=== PATIENT | male | born 1970 | race Caucasian/White ===

== ENCOUNTER → 2022-07-10 14:46 | Outpatient (BNVA) | payer BC, SELFPAY | PROVIDERS: PCP Internal Medicine; Visit Provider Nurse Practitioner Family | DX: Z13.89 Encounter for screening for other disorder (principal) ==

== ENCOUNTER → 2022-09-28 09:48 | Outpatient (BNVA) | payer BC, SELFPAY | PROVIDERS: PCP Internal Medicine; Visit Provider Urology | DX: Z13.89 Encounter for screening for other disorder (principal) ==

== ENCOUNTER 2023-03-28 10:32 | Outpatient (AMB) | payer BC, SELFPAY ==
--- NOTE | 2023-03-28 10:34 | A.OFFVIS_ITS ---
Intake Intake Visit Reasons: 6M CBC/PSA/Testo(SET) Intake Note: Patient is Present for Telephone Follow Up Urology Med: Tadalafil, Testosterone Antibiotic Allergy: None Blood Thinner: none Pharamcy: [employer] Allergies No Known Allergies Allergy (Verified 03/28/23 10:41) Medication List - Last Reconciled 03/28/23 by Tanner Cantu MD bempedoic acid-ezetimibe 180-10 mg (Nexlizet) 1 tab PO DAILY blood-glucose sensor ([employer] G6 Sensor device) As directed insulin aspart U-100 (Novolog FlexPen U-100 Insulin aspart) subcut insulin glargine (Basaglar KwikPen U-100 Insulin) 18 units subcut DAILY lisinopril 2.5 mg PO DAILY pen needle, diabetic (BD Acacia 2nd Gen Pen Needle) As directed rosuvastatin 40 mg PO DAILY tadalafil 10 - 20 mg PO DAILY PRN testosterone cypionate 80 mg (0.4 mL) IM QWEEK 28 days HPI HPI Comments History of Present Illness Details Ed is a pleasant male. He is a patient of Dr. Thapa. 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 May do in steps Prescription provided Six month follow-up Hypogonadism Had been placed on 100 mg every 6 days Initiated hormone therapy replacement in 2018 in response to decreased libido 02/24 T 926 F 221 Current labs show a mid range total T and free, borderline hematocrit Encouraged to moved to 7 day cycle with Sunday injection day and Sunday or Sunday testing Total daily insulin usage protein 12-15 units [facility] Medical History Type 1 diabetes mellitus Surgical History History of shoulder surgery History of umbilical hernia repair Review of Systems Const All systems reviewed & are unremarkable except as noted in HPI and below Reports no additional complaints Resp Reports no additional complaints GI Reports no additional complaints Reports as per HPI Musc Reports no additional complaints Physical Exam Telemedicine evaluation Appropriate responses Regular breathing rate and rhythm HEENT Head: Yes normal to inspection Ears: hearing grossly normal bilaterally Eyes General: appearance normal, both eyes and all related structures Neck Neck: Yes normal visual inspection Chest Chest palpation & inspection: normal inspection of the chest Resp Effort & Inspection: normal respiratory effort and able to speak in complete sentences Assessment & Plan Assessment & Plan (1) Diabetic erectile dysfunction associated with type 1 diabetes mellitus: Code(s): E10.69 - Type 1 diabetes mellitus with other specified complication; N52.1 - Erectile dysfunction due to diseases classified elsewhere (2) Hypogonadism in male: Code(s): E29.1 - Testicular hypofunction Plan Six month follow-up labs Orders: Orders Testosterone, Total 6 Months E29.1 - Testicular hypofunction Complete Blood Count no Diff 6 Months E29.1 - Testicular hypofunction Prostate Specific Antigen 6 Months E29.1 - Testicular hypofunction Medications: Changed From testosterone cypionate inject IM 0.5ml's every 7 days 100 mg (0.5 mL) IM QWEEK 28 days 2 mL 5RF To testosterone cypionate inject IM 0.4ml's every 7 days 80 mg (0.4 mL) IM QWEEK 28 days 2 mL 5RF Patient Instructions: Imaging studies, laboratory and physical exam results were discussed and reviewed in detail. No major barriers to patient understanding were identified. An opportunity to ask questions regarding the treatment plan was provided. All questions were answered. The patient expressed understanding and agreement with the above treatment plan. The patient is aware they should contact our office by phone for worsening of their current condition or the appearance of new urologic symptoms. Compliance is encouraged with any medications and followup testing that is ordered. It is a privilege to participate in the urologic care of your patient. If you have any questions or concerns regarding treatment for the above conditions, or other urologic issues, please do not hesitate to contact me. The office telephone contact is [phone]. This note is constructed using voice recognition software. While every effort has been made to ensure accuracy vp care management errors may have been included. Yours sincerely, Dr Tanner Cantu MD, [facility] - Urology Providers of Expert, Compassionate Care for the Genitourinary System Telehealth Telehealth Location of provider rendering services: practice address Location of patient: address on file Patient Identification confirmed using: Name, : Yes Telehealth method: video Patient verbally consented to treatment: Yes Patient verbally consented to billing insurance company: Yes Patient informed of any privacy concerns related to visit: Yes Coding Level of Care Code Tele Est Pt Level 4 (94352) Diagnoses Diabetic erectile dysfunction associated with type 1 diabetes mellitus E10.69; N52.1 Hypogonadism in male E29.1
== END 2023-03-28 15:48 | disposition home or self-care (01) ==
LOC: HO.HUSH 10:33
PROVIDERS: PCP Internal Medicine; Visit Provider Urology
DX: E10.69 Type 1 diabetes mellitus with other specified complication (principal); N52.1 Erectile dysfunction due to diseases classified elsewhere; E29.1 Testicular hypofunction
CPT/HCPCS: 99214

== ENCOUNTER → 2023-03-28 10:32 | Outpatient (BNVA) | payer BC, SELFPAY | PROVIDERS: PCP Internal Medicine; Visit Provider Urology ==

== ENCOUNTER 2023-05-21 10:47 | Outpatient (REF) | payer BC, SELFPAY ==
--- NOTE | ~2023-05-21 | XR_ITS ---
EXAMINATION: XR KNEE, RIGHT CLINICAL INFORMATION: Pain in the right knee COMPARISON: None available. TECHNIQUE: 3 views of the right knee. FINDINGS: No fracture or joint effusion. Alignment is anatomic. Joint spaces are maintained. No abnormal soft tissue calcification. XR/XR knee RT 3V IMPRESSION: Normal right knee.
== END 2023-05-21 10:48 | disposition home or self-care (01) ==
LOC: HO.HOSX 10:47
PROVIDERS: Visit Provider Orthopaedic Surgery
DX: M25.561 Pain in right knee (principal)
CPT/HCPCS: 73562

== ENCOUNTER 2023-05-21 13:48 | Outpatient (AMB) | payer BC, SELFPAY ==
--- NOTE | 2023-05-21 14:04 | A.OFFVIS_ITS ---
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 Previous patient of Dr. Naranjo. Patient describes his knee pain as achy in nature. Most of the discomfort is along the anterior a nd lateral aspects of his knee. He denies any locking or giving way. He has been resting his knee which has given him fairly good relief. He does not take any medicines for his discomfort. He continues to mountain bike for exercise. Allergies No Known Allergies Allergy (Verified 05/21/23 14:05) Medication List - Last Reconciled 05/21/23 by Luca Naranjo MD bempedoic acid-ezetimibe 180-10 mg (Nexlizet) 1 tab PO DAILY blood-glucose sensor ([employer] G6 Sensor device) As directed insulin aspart U-100 (Novolog FlexPen U-100 Insulin aspart) subcut insulin glargine (Basaglar KwikPen U-100 Insulin) 18 units subcut DAILY lisinopril 2.5 mg PO DAILY pen needle, diabetic (BD Acacia 2nd Gen Pen Needle) As directed rosuvastatin 40 mg PO DAILY tadalafil 10 - 20 mg PO DAILY PRN testosterone cypionate 80 mg (0.4 mL) IM QWEEK 28 days [facility] Medical History Type 1 diabetes mellitus Surgical History History of shoulder surgery History of umbilical hernia repair Social History (Updated 05/21/23 @ 14:06 by Josseline Burnham) Alcohol intake: never Patient Tobacco Use Status: Never used Tobacco Current occupational status: employed Physical Exam Const Other: Well-nourished well-developed very friendly male awake alert and oriented x3 in no acute distress Extrem Other: Bilateral lower extremity examination shows good capillary refill, no skin lesions noted, normal sensation light touch Right knee examination shows a minimal effusion, minimal crepitus with range of motion, tenderness along his lateral patella as well as tenderness over his patellar tendon, no overlying skin lesions Results Reviewed Results Reviewed: X-rays of the patient's right knee show minimal joint space narrowing, no acute bony abnormalities Assessment & Plan Assessment & Plan (1) Right knee pain: Code(s): M25.561 - Pain in right knee Plan Mr. 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 I had a lengthy discussion with the patient regarding treatment options. Activity modifications and stretching exercises were discussed at length with the patient. We will hold off on an injection for now. He will follow up with me on an as-needed basis should his symptoms not plateau at an unacceptable level over the next few months. Feel free to call me at any time should questions regarding his orthopedic management arise. I spent 20 minutes in reviewing the patient's records and imaging studies, seeing the patient and documenting in the medical record. Orders: Orders XR knee RT 3V Today M25.561 - Pain in right knee Coding Level of Care Code New Pt Level 2 (25156) Diagnoses Right knee pain M25.561
== END 2023-05-21 14:28 | disposition home or self-care (01) ==
PROVIDERS: PCP Internal Medicine; Visit Provider Orthopaedic Surgery
DX: M25.561 Pain in right knee (principal)
CPT/HCPCS: 99202

== ENCOUNTER 2023-10-05 13:21 | Outpatient (AMB) | payer BC, SELFPAY ==
--- NOTE | 2023-10-05 13:42 | A.OFFVIS_ITS ---
Intake Visit Reasons: 6M PSA/TESTO/CBC(set) Intake Note: Patient is Present for Follow Up Urology Medication: Tadalafil, Testosterone Antibiotic Allergies:None Blood Thinners: None Allergies No Known Allergies Allergy (Verified 05/21/23 14:05) HPI Comments Details: Ed is a pleasant male. He is a patient of Dr. Thapa. 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 Does feel some degree of fatigue on day before injection Hematocrit is starting to trend higher Discussed doing 2 injections per week Recommend starting at 40 mg 2 times per week - will decreased to 30 mg 2 times a week slowly Lab numbers running a little on the high side Hypogonadism Had been placed on 100 mg every 6 days Initiated hormone therapy replacement in 2019 in response to decreased libido 02/24 T 926 F 221, 09/25 966 H 51.7 Current labs show a mid range total T and free, borderline hematocrit Encouraged to moved to 7 day cycle with Sunday injection day and Sunday or Sunday testing Total daily insulin usage 12-15 units PFS Medical History Type 1 diabetes mellitus Surgical History History of shoulder surgery History of umbilical hernia repair Social History Alcohol intake: never Patient Tobacco Use Status: Never used Tobacco Current occupational status: employed Review of Systems Const Denies chills and Denies fever(s) Card Reports no additional complaints and Denies syncope Resp Denies cough GI Denies abdominal pain and Denies heartburn Reports as per HPI and Denies change in libido Neuro Denies syncope Psych Denies change in libido Endo Denies change in libido Physical Exam Const General: cooperative, healthy appearing, comfortable and no acute distress Orientation/consciousness: patient oriented x3 HEENT Face and sinus: Yes normal facial exam Mouth: moist mucous membranes Neck Neck: Yes normal visual inspection, Yes full ROM and Yes trachea midline Chest Chest palpation & inspection: normal inspection of the chest Resp Effort & Inspection: normal respiratory effort, able to speak in complete sentences and no respiratory distress GI Inspection: Yes normal to inspection Back/Spine/Pelvis Cervical Spine: normal cervical lordosis Thoracic/Lumbar Spine: thoracic and lumbar spine normal to inspection Skin General skin exam: no rashes or lesions noted Neuro General: patient oriented x3, gait normal, tone normal and moves all extremities Extrem General: Yes normal to inspection and Yes capillary refill normal Assessment & Plan Assessment & Plan (1) Diabetic erectile dysfunction associated with type 1 diabetes mellitus: Code(s): E10.69 - Type 1 diabetes mellitus with other specified complication; N52.1 - Erectile dysfunction due to diseases classified elsewhere Category: Medical (2) Hypogonadism in male: Code(s): E29.1 - Testicular hypofunction Category: Medical Plan Adjust testosterone dosing New prescription provided Six-month follow-up lab work Orders: Orders Testosterone, Total 6 Months E29.1 - Testicular hypofunction Complete Blood Count no Diff 6 Months E29.1 - Testicular hypofunction Medications: New needle (disp) 18 G (BD Regular Bevel [place]) As directed - draw up testosterone 100 ea 0RF E29.1 - Testicular hypofunction syringe (disposable) (Monoject TB Luer Yolis) As directed - use 18 needle to draw up testosterone and 22 to inject 60 ea 0RF E29.1 - Testicular hypofunction safety needles (Easy Touch FlipLock Needle) As directed 60 ea 0RF E29.1 - Testicular hypofunction Patient Instructions: Imaging studies, laboratory and physical exam results were discussed and reviewed in detail. No major barriers to patient understanding were identified. An opportunity to ask questions regarding the treatment plan was provided. All questions were answered. The patient expressed understanding and agreement with the above treatment plan. The patient is aware they should contact our office by phone for worsening of their current condition or the appearance of new urologic symptoms. Compliance is encouraged with any medications and followup testing that is ordered. It is a privilege to participate in the urologic care of your patient. If you have any questions or concerns regarding treatment for the above conditions, or other urologic issues, please do not hesitate to contact me. The office telephone contact is [phone]. This note is constructed using voice recognition software. While every effort has been made to ensure accuracy metal tile setter errors may have been included. Yours sincerely, Dr Tanner Cantu MD, [facility] - Urology Providers of Expert, Compassionate Care for the Genitourinary System Coding Level of Care Code Est Pt Level 4 (41991) Complex EM visit Add On G2211 Diagnoses Diabetic erectile dysfunction associated with type 1 diabetes mellitus E10.69; N52.1 Hypogonadism in male E29.1
== END 2023-10-05 14:14 | disposition home or self-care (01) ==
PROVIDERS: PCP Internal Medicine; Visit Provider Urology
DX: E10.69 Type 1 diabetes mellitus with other specified complication (principal); N52.1 Erectile dysfunction due to diseases classified elsewhere; E29.1 Testicular hypofunction
CPT/HCPCS: 99214; G2211

== ENCOUNTER → 2023-10-05 13:21 | Outpatient (BNVA) | payer BC, SELFPAY | PROVIDERS: PCP Internal Medicine; Visit Provider Urology ==

== ENCOUNTER 2024-04-04 09:09 | Outpatient (AMB) | payer BC, SELFPAY ==
--- NOTE | 2024-04-04 09:11 | A.OFFVIS_ITS ---
Intake Visit Reasons: 6M CBC/Testo(set) Intake Note: Patient is Present for Telephone Follow Up CBC/TESTO Results Urology Med: Testosterone, Tadalafil Antibiotic Allergy: None Blood Thinner: None Recent labs: 03/12/24 CBC: Total Testosterone: 792 Interventional Radiology Rn Required: No Accompanied by: Self / Same As Patient Allergies No Known Allergies Allergy (Verified 04/04/24 09:13) HPI Comments Details: Ed is a pleasant male. He is a patient of Dr. Thapa. 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 Feels less of a roller coaster. Hematocrit has reduced fractionally but is still in good range Hypogonadism Had been placed on 100 mg every 6 days Initiated hormone therapy replacement in 2018 in response to decreased libido 02/24 T 926 F 221, 09/25 966 H 51.7, 03/27 T 790 H 52 Current labs show a mid range total T and free, borderline hematocrit Encouraged to moved to 7 day cycle with Sunday injection day and Sunday or Sunday testing Total daily insulin usage 12-15 units PFS Medical History Type 1 diabetes mellitus Surgical History History of shoulder surgery History of umbilical hernia repair Social History Alcohol intake: never Patient Tobacco Use Status: Never used Tobacco Current occupational status: employed Review of Systems Const All systems reviewed & are unremarkable except as noted in HPI and below Reports no additional complaints Resp Reports no additional complaints GI Reports no additional complaints Reports as per HPI Musc Reports no additional complaints Physical Exam Telemedicine evaluation Appropriate responses Regular breathing rate and rhythm HEENT Head: Yes normal to inspection Ears: hearing grossly normal bilaterally Eyes General: appearance normal, both eyes and all related structures Neck Neck: Yes normal visual inspection Chest Chest palpation & inspection: normal inspection of the chest Resp Effort & Inspection: normal respiratory effort and able to speak in complete sentences Telehealth Telehealth Location of provider rendering services: practice address Location of patient: address on file Patient Identification confirmed using: Name, : Yes Telehealth method: video Patient verbally consented to treatment: Yes Patient verbally consented to billing insurance company: Yes Patient informed of any privacy concerns related to visit: Yes Assessment & Plan Assessment & Plan (1) Hypogonadism in male: Code(s): E29.1 - Testicular hypofunction Category: Medical Plan Continue current dosing regimen Orders: Orders Prostate Specific Antigen 6 Months E29.1 - Testicular hypofunction Testosterone, Total 6 Months E29.1 - Testicular hypofunction Complete Blood Count no Diff 6 Months E29.1 - Testicular hypofunction Medications: Refilled testosterone cypionate Split dose 0.2 mL 2 times a week Sunday evening and morning. 80 mg (0.4 mL) subcut QWEEK 28 days 4 mL 5RF E29.1 - Testicular hypofunction Patient Instructions: Imaging studies, laboratory and physical exam results were discussed and reviewed in detail. No major barriers to patient understanding were identified. An opportunity to ask questions regarding the treatment plan was provided. All questions were answered. The patient expressed understanding and agreement with the above treatment plan. The patient is aware they should contact our office by phone for worsening of their current condition or the appearance of new urologic symptoms. Compliance is encouraged with any medications and followup testing that is ordered. It is a privilege to participate in the urologic care of your patient. If you have any questions or concerns regarding treatment for the above conditions, or other urologic issues, please do not hesitate to contact me. The office telephone contact is [phone]. This note is constructed using voice recognition software. While every effort has been made to ensure accuracy farmworker livestock errors may have been included. Yours sincerely, Dr Tanner Cantu MD, [facility] - Urology Providers of Expert, Compassionate Care for the Genitourinary System Coding Level of Care Code Tele Est Pt Level 3 (62147) Diagnoses Hypogonadism in male E29.1
== END 2024-04-04 10:14 | disposition home or self-care (01) ==
LOC: HO.HUSH 09:09
PROVIDERS: PCP Internal Medicine; Visit Provider Urology
DX: E29.1 Testicular hypofunction (principal)
CPT/HCPCS: 99213

== ENCOUNTER → 2024-04-04 09:09 | Outpatient (BNVA) | payer BC, SELFPAY | PROVIDERS: PCP Internal Medicine; Visit Provider Urology ==

== ENCOUNTER 2024-10-07 08:46 | Outpatient (AMB) | payer BC, SELFPAY ==
--- NOTE | 2024-10-07 08:46 | MHC.OFFVIS ---
Intake Visit Reasons: 6m/ labs Intake Note: Patient is present for 6M/LABS Urology Medication:TESTOSTERONE,TADALAFIL Antibiotic Allergy:NONE Blood Thinner:NONE Social Studies Teacher Required: No Allergies No Known Allergies Allergy (Verified 10/07/24 08:46) HPI Comments Details: Ed is a pleasant male. He is a patient of Dr. Thapa. 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 Feels less of a roller coaster. 50mg per injection. Hematocrit has reduced fractionally but is still in good range T high on this lab - was done afternoon of injection Hypogonadism Had been placed on 100 mg every 6 days Initiated hormone therapy replacement in 2018 in response to decreased libido 02/24 T 926 F 221, 09/25 966 H 51.7, 03/27 T 790 H 52, 09/05/24 1113 52 0.6 (Sun) Current labs show a mid range total T and free, borderline hematocrit Encouraged to moved to 7 day cycle with Sunday injection day and Sunday or Sunday testing Total daily insulin usage 1 unit per grams of carbs 15-20 gm [facility] Medical History Type 1 diabetes mellitus Surgical History History of shoulder surgery History of umbilical hernia repair Social History Alcohol intake: never Patient Tobacco Use Status: Never used Tobacco Current occupational status: employed Review of Systems Const All systems reviewed & are unremarkable except as noted in HPI and below Reports no additional complaints Resp Reports no additional complaints GI Reports no additional complaints Reports as per HPI Musc Reports no additional complaints Physical Exam Telemedicine evaluation Appropriate responses Regular breathing rate and rhythm HEENT Head: Yes normal to inspection Ears: hearing grossly normal bilaterally Eyes General: appearance normal, both eyes and all related structures Neck Neck: Yes normal visual inspection Chest Chest palpation & inspection: normal inspection of the chest Resp Effort & Inspection: normal respiratory effort and able to speak in complete sentences Telehealth Telehealth Location of provider rendering services: practice address Location of patient: address on file Patient Identification confirmed using: Name, : Yes Telehealth method: voice only Patient verbally consented to treatment: Yes Patient verbally consented to billing insurance company: Yes Patient informed of any privacy concerns related to visit: Yes Assessment & Plan Assessment & Plan (1) Hypogonadism in male: Code(s): E29.1 - Testicular hypofunction Category: Medical (2) Diabetic erectile dysfunction associated with type 1 diabetes mellitus: Code(s): E10.69 - Type 1 diabetes mellitus with other specified complication; N52.1 - Erectile dysfunction due to diseases classified elsewhere Category: Medical (3) BPH (benign prostatic hyperplasia): Code(s): N40.0 - Benign prostatic hyperplasia without lower urinary tract symptoms Category: Medical Plan Six-month follow-up lab work office Orders: Orders Testosterone, Total 6 Months E29.1 - Testicular hypofunction Prostate Specific Antigen 6 Months E29.1 - Testicular hypofunction Complete Blood Count no Diff 6 Months E29.1 - Testicular hypofunction Medications: Changed From tadalafil 10 - 20 mg PO DAILY PRN To tadalafil 5 mg PO DAILY 90 days 90 tabs 1RF Refilled testosterone cypionate Split dose 0.2 mL 2 times a week Sunday evening and morning. 80 mg (0.4 mL) subcut QWEEK 28 days 4 mL 5RF E29.1 - Testicular hypofunction Patient Instructions: This note is constructed using voice recognition software. While every effort has been made to ensure accuracy door frame builder errors may have been included. Imaging studies, laboratory and physical exam results were discussed and reviewed in detail. No major barriers to patient understanding were identified. An opportunity to ask questions regarding the treatment plan was provided. All questions were answered. The patient expressed understanding and agreement with the above treatment plan. The patient is aware they should contact our office by phone for worsening of their current condition or the appearance of new urologic symptoms. Compliance is encouraged with any medications and followup testing that is ordered. It is a privilege to participate in the urologic care of your patient. If you have any questions or concerns regarding treatment for the above conditions, or other urologic issues, please do not hesitate to contact me. The office telephone contact is [phone]. Sincerely, Dr Tanner Cantu MD, [facility] - Urology Compassionate Specialist Care for the Genitourinary System Coding Level of Care Code Est Pt Level 4 (43938) Complex EM visit Add On G2211 Diagnoses Hypogonadism in male E29.1 Diabetic erectile dysfunction associated with type 1 diabetes mellitus E10.69; N52.1 BPH (benign prostatic hyperplasia) N40.0
--- OUTSIDE RECORDS SUMMARY | 2024-10-07 09:16 | XMS_ITS | Clinical Summary ---
Author Organization [facility] Address [address] [place] [address] Care Team Providers Care Export Clerk Name Role Phone Seferino Thapa MD Primary Care Provider [phone] Matt Whitmore MD Unavailable Tanner Cantu MD Unavailable [phone] Allergies No known active allergies Medications aspirin enteric coated (ECOTRIN LOW STRENGTH) 81 MG EC tablet Take 1 tablet (81 mg total) by mouth daily. Active rosuvastatin (CRESTOR) 40 MG tablet Take 1 tablet (40 mg total) by mouth daily. 12/27/19 21 Active NovoLOG FLEXPEN, insulin aspart, 100 UNIT/ML subcutaneous injection INJECT 4 6 UNITS, SUBCUTANEOUSLY 3 TIMES A DAY BEFORE MEALS DIRECTED. ROTATE INJECTION SITES. 11/13/19 21 Active testosterone cypionate (DEPO-TESTOSTERONE CYPIONATE) 200 mg/mL injection Inject 0.5 mL (100 mg total) into the shoulder, thigh, or buttocks. Every 5 days 12/17/19 21 Active Magnesium 400 MG Cap Take 1 capsule by mouth daily. Active tadalafil (CIALIS) 10 MG tablet Take 1-2 tablets (10-20 mg total) by mouth as needed. 06/01/20 20 Active coenzyme Q10 (CO Q 10) 100 MG capsule Take 1 capsule (100 mg total) by mouth daily. Active Multiple Vitamin tablet Take 1 tablet by mouth daily. Active omega-3 fatty acids (FISH OIL) 1000 MG Cap capsule Take 1 capsule (1,000 mg total) by mouth daily. Active Insulin Pen Needle (BD Pen Needle Acacia U/F) 32G X 4 MM Misc by Does not apply route. Active Fluocinolone Acetonide 0.01 % Oil Administer 2-4 drop(s) of each component into both ears 2 (two) times a day. Active glucose blood (FREESTYLE LITE) test strip 1 test strip by Other (specify) route as needed. Use as instructed Active insulin lispro (HumaLOG) 100 units/mL injection Inject 0.05 mL (5 Units total) under the skin 3 (three) times a day with meals. Active SYRINGE-NEEDLE, DISP, 3 ML 23G X 1 3 ML Misc by Does not apply route. Active SYRINGE-NEEDLE, DISP, 3 ML 25G X 5/8 3 ML Misc by Does not apply route. Active lisinopril (PRINIVIL,ZeSTRIL) 2.5 MG tablet Take 1 tablet (2.5 mg total) by mouth daily. 09/26/19 23 Active insulin glargine (Lantus SoloStar) 100 units/mL prefilled pen injection Inject 17 Units under the skin. 07/17/19 24 Active Continuous Glucose Sensor (Dexcom G7 Sensor) Misc CHANGE EVERY 10 DAYS 09/10/19 24 Active Nexlizet 180-10 MG tabletIndications: Mixed hyperlipidemia TAKE ONE TABLET BY MOUTH EVERY DAY 90 tablet 3 03/17/20 24 Active Active Problems Problem Noted Date Diagnosed Date Mixed hyperlipidemia 12/29/2020 Elevated coronary artery calcium score Libido, decreased 08/27/2019 Lateral epicondylitis, right elbow 06/28/2017 Encounters Date Type Department Care Team Description 09/05/2024 Telephone [facility] [place] [address] [address] Matt Whitmore MD from Last 3 Months Family History Medical History Relation Name Comments No Known Problems Father No Known Problems Mother Relation Name Status Comments Father Mother Social History Tobacco Use Types Packs/Day Years Used Date Smoking Tobacco: Former Smokeless Tobacco: Never Tobacco Cessation:Counseling Given: Yes Alcohol Use Standard Drinks/Week Comments Yes 0 (1 standard drink = 0.6 oz pur e alcohol) Sex and Gender Information Value Date Recorded Sex Assigned at Male 10/03/2022 1:10 PM EDT Legal Sex Male 4:57 PM EDT Gender Identity Male 10/03/2022 1:10 PM EDT Sexual Orientation Heterosexual (straight) 10/03 1:10 PM EDT Last Filed Vital Signs Vital Sign Reading Time Taken Comments Blood Pressure 128/86 10/05/2023 9:50 AM EDT Pulse 58 10/05/2023 9:50 AM EDT Temperature - - Respiratory Rate - - Oxygen Saturation 98% 10/05/2023 9:50 AM EDT Inhaled Oxygen Concentration - - Weight 78.4 kg (172 lb 12.8 oz) 10/05/2023 9:50 AM EDT Height 177 cm (5' 9.69 ) 10/05/2023 9:50 AM EDT Body Mass Index 25.02 10/05/2023 9:50 AM EDT Plan of Treatment Upcoming Encounters Date Type Department Care Team (Late st Contact Info) Description 10/09/2024 10:00 AM EDT Office Visit [facility] [place] [address] [phone] Matt Whitmore MD [address] [place] [id number] Health Maintenance Due Date Last Done Comments Hepatitis C Virus Screening 1970 HIV Screening 1983 DTaP/Tdap/Td Vaccines (1 - Tdap) 1989 Hepatitis B Vaccines (1 of 3 - 19+ 3-dose series) 05/05 Colonoscopy 2015 Pneumococcal Vaccines 50+ (1 of 1 - PCV) 2020 Zoster (Shingles) Vaccine (1 of 2) 2020 Influenza Vaccine 01/03/2024 COVID-19 Vaccine (1 - 2023- season) 2024 Procedures Procedure Name Priority Date/Time Associated Diagnosis Comments CARDIO IQ?? VITAMIN D, 25-HYDROXY Routine 09/05/2024 6:23 AM EDT Elevated coronary artery calcium score Mixed hyperlipidemia Blood glucose abnormal Vitamin D deficiency OMEGACHECK ? ? Routine 09/05/2024 6:23 AM EDT Elevated coronary artery calcium score Mixed hyperlipidemia Blood glucose abnormal CARDIO IQ?? INSULIN RESISTANCE PANEL WITH SCORE Routine 09/05/2024 6:23 AM EDT Elevated coronary artery calcium score Mixed hyperlipidemia Blood glucose abnormal CARDIO IQ?? HEMOGLOBIN A1C Routine 09/05/2024 6:23 AM EDT Elevated coronary artery calcium score Mixed hyperlipidemia Blood glucose abnormal CARDIO (IQ) ?? ADVANCED LIPID PANEL AND INFLAMMATION PANEL Routine 09/05/2024 6:23 AM EDT Elevated coronary artery calcium score Mixed hyperlipidemia Blood glucose abnormal from Last 3 Months Results * (ABNORMAL) Cardio IQ?? Insulin Resistance Panel with Score (09/05/2024 6:23 AM EDT) [facility] Insulin, Intact <3 < OR = 16 uIU/mL [facility], Comment: Insulin concentration can be converted to pmol/L by applying the conversion factor: 1 uIU/mL = 5.97 pmol/L For additional information, please refer to http://SRE [place] - 2.VSE EVAKUATORY ROSSII/faq/VMC090 (This link is being provided for informational/educational purposes only.) This test was developed and its analytical performance characteristics have been determined by [facility]. It has not been cleared or approved by the FDA. This assay has been validated pursuant to the CLIA regulations and is used for clinical purposes. C-Peptide <0.11(L) 0.68 - 2.16 ng/mL [facility], Insulin Resistance Score NOT CALC(A) < OR = 66 [facility], Comment: Unable to calculate the Insulin Resistance Score, as one or more analytes were outside of the reportable range. Insulin Sensitive < 33; Impaired Insulin Sensitivity 33-66; Insulin Resistant >66 A score below 33 is optimal. The insulin resistance score correlates with steady state glucose levels achieved during an insulin suppression test, a standard research test for insulin resistance. The score is based on insulin and C-peptide results (Lisbet F, Dawn D, Sushant SANDOVAL, et al. Insulin resistance probability scores for apparently healthy individuals. J Endocr Soc. 2018;2(9):1043-8766). For additional information, please refer to http://SRE [place] - 2.VSE EVAKUATORY ROSSII/faq/UNK951 (This link is being provided for informational/educational purposes only.) This test was developed and its analytical performance characteristics have been determined by [facility]. It has not been cleared or approved by the FDA. This assay has been validated pursuant to the CLIA regulations and is used for clinical purposes. 09/05/2024 6:23 AM EDT 09/05/2024 6:24 AM EDT Narrative [facility] - 09/25/2024 10:36 PM EDT FASTING:YES FASTING: YES us Matt Whitmore MD LAB BLOOD ORDERABLES Final Resul t EMILIANO [facility], [address] [place] [address] * (ABNORMAL) Omegacheck (Goodell-3, Goodell-6) (09/05/2024 6:23 AM EDT) [facility] EPA+DPA+DHA 7.1 >5.4 % by wt [facility]. Comment: This test was developed and its analytical performance characteristics have been determined by [facility]. It has not been cleared or approved by the U.S. Food and Drug Administration. This assay has been validated pursuant to the CLIA regulations and is used for clinical purposes. Increasing blood levels of long-chain n-3 fatty acids are associated with a lower risk of sudden cardiac (1). Based on the top (75th percentile) and bottom (25th percentile) quartiles of the CHL reference population, the following relative risk categories were established for OmegaCheck: ??A cut-off of >=5.5% by wt defines a population at optimal relative risk, 3.8-5.4% by wt defines a population at moderate relative risk, and <=3.7% by wt defines a population at high relative risk of sudden cardiac . The totality of the scientific evidence demonstrates that when consumption of fish oils is limited to 3 g/day or less of EPA and DHA, there is no significant risk for increased bleeding time beyond the normal range. A daily dosage of 1 gram of EPA and DHA lowers the circulating triglycerides by about 7-10% within 2 to 3 weeks. (Reference: 1-Jd et al. [facility]. 2002; 346: 8706-9043). EPA/Arachidonic Acid Ratio 11.4 3.7 - 40.7 [employer]. Goodell 6/Goodell 3 Ratio 5.1 3.7 - 14.4 [employer]. Goodell-3 Total 7.1 % by wt [employer]. EPA 1.4 0.2 - 2.3 % by wt [employer] [facility]. DPA 1.6 0.8 - 1.8 % by wt [facility]. DHA 4.1 1.4 - 5.1 % by wt [facility]. Goodell-6 Total 36.3 % by wt [employer]. Comment: Context Relevant measures a number of omega-6 fatty acids with AA and LA being the two most abundant forms reported. Arachidonic Acid 15.6 8.6 - 15.6 % by wt [facility]. Linoleic Acid 17.2(L) 18.6 - 29.5 % by wt [facility].-[employer]. 09/05/2024 6:23 AM EDT 09/05/2024 6:24 AM EDT Narrative EMILIANO - 09/25/2024 10:36 PM EDT FASTING:YES FASTING: YES us Matt Whitmore MD LAB BLOOD ORDERABLES Final Resul t EMILIANO [facility] Best.-CAD Best. [address] [facility], [address] [place] [address] * (ABNORMAL) Cardio IQ?? Advanced Lipid Panel and Inflammation Panel (09/05/2024 6:23 AM EDT) Cholesterol, Total 103 <200 mg/dL [facility] [employer] Cholesterol, HDL 50 >39 mg/dL [facility] [employer] Triglycerides 59 <150 mg/dL [facility] [employer] LDL Cholesterol 39 <100 mg/dL (calc) [facility] i[employer] Inc[employer]Lab Inc. Comment: Desirable range <100 mg/dL for primary prevention; <70 mg/dL for patients with CHD or diabetic patients with >= 2 CHD risk factors. LDL-C is now calculated using the Lyndon-Christianson calculation, which is a validated novel method providing better accuracy than the Friedewald equation in the estimation of LDL-C. Lyndon SS et al. BUFFY. 2013;310(19): 8258-3579 (http://education.Bugcrowd.[facility] Innovatoins/faq/TIM165) LDL-C is now calculated using the Lyndon-Christianson calculation, which is a validated novel method providing better accuracy than the Friedewald equation in the estimation of LDL-C. Lyndon SS et al. BUFFY. 2013;310(19): 4811-1013 (http://education.Bugcrowd.[facility] [facility] [employer]/faq/PCT185) Cholesterol/HDL Ratio 2.1 <5.0 calc [facility] [employer] Non HDL Chol. (LDL+VLDL) 53 <130 mg/dL (calc) [facility] [employer] Comment: For patients with diabetes plus 1 major ASCVD risk factor, treating to a non-HDL-C goal of <100 mg/dL (LDL-C of <70 mg/dL) is considered a therapeutic option. For patients with diabetes plus 1 major ASCVD risk factor, treating to a non-HDL-C goal of <100 mg/dL (LDL-C of <70 mg/dL) is considered a therapeutic option. LDL Particle Number 941 <1,138 nmol/L [facility] [employer]i, Inc[employer]Lab Inc. Comment: Relative Risk: Optimal <1138; Moderate 2827-9706; High >1409. Male and Female Reference Range: 1016 to 2185 nmol/L. LDL Small 191(H) <142 nmol/L [facility]. Comment: Relative Risk: Optimal <142; Moderate 142-219; High >219. Male Reference Range: 123 to 441 nmol/L; Female Reference Range: 115 to 386 nmol/L. LDL Medium 161 <215 nmol/L [facility]. Comment: Relative Risk: Optimal <215; Moderate 215-301; High >301. Male Reference Range: 167 to 485 nmol/L; Female Reference Range: 121 to 397 nmol/L. HDL Large 4,197(L) >6,729 nmol/L [facility]. Comment: Relative Risk: Optimal >6729; Moderate 5079-0845; High <5353. Male Reference Range: 4334 to [address] nmol/L; Female Reference Range: 5038 to [address] nmol/L. LDL Pattern B(A) A Pattern [facility]. Comment: Relative Risk: Optimal Pattern A; High Pattern B. Reference Range: Pattern A. LDL Peak Size 213.3(L) >222.9 Angstrom [facility]. Comment: This test was developed and its analytical performance characteristics have been determined by [facility]. It has not been cleared or approved by the U.S. Food and Drug Administration. This assay has been validated pursuant to the CLIA regulations and is used for clinical purposes. Relative Risk: Optimal >222.9; Moderate 222.9-217.4; High <217.4. Male and Female Reference Range: 216 to 234.3 Angstrom. Adult cardiovascular event risk category cut points (optimal, moderate, high) are based on an adult U.S. reference population plus two large cohort study populations. Association between lipoprotein subfractions and cardiovascular events is based on Janeth et al. ATVB.2009;29:1975. For additional information, please refer to http://education.Bugcrowd.[facility] [facility] Innovatoins/faq/MTE873 (This link is being provided for informational/educational purposes only.) Apolipoprotein B 50 <90 mg/dL [facility]. Comment: Risk: Optimal <90 mg/dL; Moderate 90-119 mg/dL; High >= 120 mg/dL; ??Cardiovascular event risk category cut points (optimal, moderate, high) are based on National Lipid Association recommendations- ??Chepe JAIN et al. J of Clin Lipid. 2015; 9: 129-169 and Alexus CHAND et al. Endocr Pract. 2017;23(Suppl 2):1-87. Lipoprotein (a) 11 <75 nmol/L [facility]. Comment: Risk: Optimal <75 nmol/L; Moderate 75-125 nmol/L; High >125 nmol/L. Cardiovascular event risk category cut points (optimal, moderate, high) are based on Federico Lucas [facility] 2017;69:692-711. C-Reactive Protein (High Sens) <0.2 <1.0 mg/L [place] [facility]. Comment: Reference Range: Optimal <1.0 mg/L, according to Alexus CHAND et al. Endocr Pract.2017;23(Suppl 2):1-87. The AHA/CDC Guidelines recommend hs-CRP ranges for identifying Relative Cardiovascular Risk in patients ages >17 years: <1.0 mg/L Lower Relative Cardiovascular Risk; 1.0-3.0 mg/L Average Relative Cardiovascular Risk; 3.1-10.0 mg/L Higher Relative Cardiovascular Risk. If result is between 3.1 and 10.0 mg/L, consider retesting in 1-2 weeks to exclude a benign transient elevation secondary to infection or inflammation from the baseline CRP value. Persistent elevations of >10.0 mg/L upon retesting may be associated with infection and inflammation. The AHA/CDC recommendations are based on Oh TA, To GA, Tanner RW, et al. Markers of inflammation and cardiovascular disease: application to clinical and public health practice: A statement for healthcare professionals from the Centers for Disease Control and Prevention and the [place] [employer]. Circulation 2003; 107(3): 499-511. For ages >17 Years: hs-CRP mg/L ??Risk According to AHA/CDC Guidelines <1.0 ? Lower relative cardiovascular risk. 1.0-3.0 ?Average relative cardiovascular risk. 3.1-10.0 ? Higher relative cardiovascular risk. ? Consider retesting in 1 to 2 weeks to ? exclude a benign transient elevation ? in the baseline CRP value secondary ? to infection or inflammation. >10.0 ?Persistent elevation, upon retesting, ? may be associated with infection and ? inflammation. Oh TA, To GA, Tanner RW, et al. Markers of inflammation and cardiovascular disease: ?? application to clinical and public health practice: A statement for healthcare professionals from the Centers for Disease Control and Prevention and the [place] [employer]. Circulation 2003; 107(3): 499-511. LP PLA2 Activity 81 <124 nmol/min/mL [facility] PET Comment: Relative Risk: Optimal <=123 nmol/min/mL; High >123 nmol/min/mL. This test was developed and its analytical performance characteristics have been determined by [facility]. It has not been cleared or approved by the FDA. This assay has been validated pursuant to the CLIA regulations and is used for clinical purposes. See Note 1 Note 1 This test was developed and its analytical performance characteristics have been determined by [facility]. It has not been cleared or approved by the FDA. This assay has been validated pursuant to the CLIA regulations and is used for clinical purposes. 09/05/2024 6:23 AM EDT 09/05/2024 6:24 AM EDT Narrative [facility] - 09/25/2024 10:36 PM EDT FASTING:YES FASTING: YES us Matt Whitmore MD LAB BLOOD ORDERABLES Final Resul t [facility] Clean [facility].-[place] [employer]. [address] [facility], [address] [place] [address] * (ABNORMAL) Cardio IQ?? Hemoglobin A1C (09/05/2024 6:23 AM EDT) Hemoglobin A1C 6.4(H) <5.7 % Alex deutsch [employer].-[employer]mi pr[employer]it [employer]. Comment: For someone without known diabetes, a hemoglobin A1c value between 5.7% and 6.4% is consistent with prediabetes and should be confirmed with a follow-up test. ??For someone with known diabetes, a value <7% indicates that their diabetes is well controlled. ??A1c targets should be individualized based on duration of diabetes, age, co-morbid conditions and other considerations. ??This assay result is consistent with an increased risk of diabetes. Currently, no consensus exists regarding use of hemoglobin A1c for diagnosis of diabetes in children. This test was performed on the Nelly ryan c503 platform. Effective 08/07/2023, a change in test platforms from the Best Lacquer Mixer to the Nelly ryan c503 may have shifted HbA1c results compared to historical results. Based on laboratory validation testing conducted at [facility], the Nelly platform relative to the Best platform had an average increase in HbA1c value of <=0.3%. This difference is within accepted variability established by the National Glycohemoglobin Standardization Program. Note that not all individuals will have had a shift in their results and direct comparisons between historical and current results for testing conducted on different platforms is not recommended. 09/05/2024 6:23 AM EDT 09/05/2024 6:24 AM EDT Narrative [facility] - 09/25/2024 10:36 PM EDT FASTING:YES FASTING: YES us Matt Whitmore MD LAB BLOOD ORDERABLES Final Resul t [facility].-[place] [facility] [address] [facility], [address] [place] [address] * Cardio IQ?? Vitamin D, 25-Hydroxy (09/05/2024 6:23 AM EDT) Vitamin D, 25-Hydroxy, Total 38 30 - 100 ng/mL [facility] Comment: Vitamin D, 25-Hydroxy reports concentrations of two common forms, 25-OHD2 and 25-OHD3. 25-OHD3 indicates both endogenous production and supplementation. 25-OHD2 is an indicator of exogenous sources such as diet or supplementation. ??Therapy is based on measurement of Total 25-OHD, with levels <20 ng/mL indicative of Vitamin D deficiency, while levels between 20 ng/mL and 30 ng/mL suggest insufficiency. Optimal levels are > or = 30 ng/mL. For additional information, please refer to http://education.VSE EVAKUATORY ROSSII/faq/XLR047 (This link is being provided for informational/ educational purposes only.) Vitamin D, 25-Hydroxy, D3 38 ng/mL [facility] Comment: This test was developed and its analytical performance characteristics have been determined by [facility] [place], [place]. It has not been cleared or approved by the U.S. Food and Drug Administration. This assay has been validated pursuant to the CLIA regulations and is used for clinical purposes. Vitmain D, 25-Hydroxy, D2 <4 ng/mL [facility]/N [facility] Comment: This test was developed and its analytical performance characteristics have been determined by [place]. It has not been cleared or approved by the U.S. Food and Drug Administration. This assay has been validated pursuant to the CLIA regulations and is used for clinical purposes. 09/05/2024 6:23 AM EDT 09/05/2024 6:24 AM EDT Narrative [facility] - 09/25/2024 10:36 PM EDT FASTING:YES FASTING: YES us Matt Whitmore MD LAB BLOOD ORDERABLES Final Resul t EMILIANO [place] [address] [facility] [address] [place] from Last 3 Months Insurance [facility] PREFERRED Care Teams Export Clerk Relationship Specialty Start Date End Date Seferino Thapa MD [place] [address] PCP - General 12/28/20 Matt Whitmore MD [address] [place] [id number] Primary Tapper Helper Cardiovascular Disease 10/04/22 Tanner Cantu MD [address] [facility] [address] [place] [address] Urology 10/04/22
--- OUTSIDE RECORDS SUMMARY | 2024-10-07 09:16 | XMS_ITS | Clinical Summary ---
Author Organization [facility] Address [address] [place] [address] Care Team Providers Care Home Mission Worker Name Role Phone Seferino Thapa MD Primary Care Provider Unavail able Allergies No known active allergies Medications Medication Sig Dispensed Refills Start Date End Date Status Insulin Glargine (BASAGLAR KWIKPEN) 100 UNIT/ML SOPN INJECT 14 UNIT BY SUBCUTANEOUS ROUTE EVERY DAY PER INSULIN PROTOCOL 3 04/11/2017 Active Jackson-3 Fatty Acids (FISH OIL PO) Take by mouth. 0 Active Multiple Vitamin (MULTI-DAY VITAMINS PO) Take by mouth. 0 Active Fluocinolone Acetonide 0.01 % OIL APPLY 2-4 DROPS TO THE EARS TWICE DAILY FOR 1-2 WEEKS FOR FLARES IS NEEDED DISPENSE WITH DROPPER 1 06/21/2017 Active FREESTYLE LITE test strip USE TO TEST BLOOD SUGAR 8 TIMES A DAY 3 07/30/2017 Active HUMALOG 100 UNIT/ML SOCT INJECT 5 UNITS BY SUBCUTANEOUS ROUTE 3 TIMES DAILY WITH MEALS 3 07/18/2017 Active BD PEN NEEDLE SELVIN U/F 32G X 4 MM MISC USE TO INJECT INSULIN 5-6 TIMES A DAY 0 07/10/2017 Active rosuvastatin (CRESTOR) tablet 40 mg Take 40 mg by mouth daily. 0 12/17/2019 Active aspirin EC 81 MG tablet Take 81 mg by mouth daily. 0 Active Bempedoic Acid-Ezetimibe (NEXLIZET) 180-10 MG TABS Take 1 tablet by mouth daily. 90 tablet 3 03/17/2020 Active Magnesium 400 MG CAPS Take 1 capsule by mouth daily. 0 Active SYRINGE-NEEDLE, DISP, 3 ML (B-D 3CC LUER-JEREL SYR 23GX1 ) 23G X 1 3 ML MISC USE WITH TESTOSTERONE THERAPY 30 each 3 09/08/2021 Active Syringe/Needle, Disp, (SYRINGE 3CC/25GX5/8 ) 25G X 5/8 3 ML MISC Use as directed with testosterone therapy 30 each 1 02/27/2022 Active tadalafil (CIALIS) 10 MG tablet Take 1-2 tablets (10-20 mg total) by mouth daily as needed for erectile dysfunction. Take 1-2 tabs 30 minutes prior to sex 60 tablet 3 03/14/2022 Active testosterone cypionate (DEPO-TESTOSTERONE CYPIONATE) injection 200 mg/mL Inject 0.5 mL (100 mg total) into the muscle every 5 days. 8 mL 0 05/16/2022 Active Active Problems Problem Noted Date Diagnosed Date Testosterone deficiency in male 03/09/2022 Libido, decreased 08/27/2019 Lateral epicondylitis, right elbow 06/28/2017 Family History Medical History Relation Name Comments No Sig Med Hx Father No Sig Med Hx Mother Relation Name Status Comments Father Mother Social History Tobacco Use Types Packs/Day Years Used Date Smoking Tobacco: Never Smokeless Tobacco: Never Alcohol Use Standard Drinks/Week Comments Yes 0 (1 standard drink = 0.6 oz pur e alcohol) Sex and Gender Information Value Date Recorded Sex Assigned at Not on file Gender Identity Not on file Sexual Orientation Not on file Job Start Date Occupation Industry Not on file Not on file Not on file Last Filed Vital Signs Vital Sign Reading Time Taken Comments Blood Pressure 130/90 06/25/2020 1:43 PM EST Pulse 61 06/25/2020 1:43 PM EST Temperature 36.9 ??C (98.4 ??F) 08/27/2019 8:10 AM ED T Respiratory Rate 20 08/27/2019 8:10 AM EDT Oxygen Saturation - - Inhaled Oxygen Concentration - - Weight 76.9 kg (169 lb 9.6 oz) 06/25/2020 1:43 P M EST Height 175.3 cm (5' 9 ) 06/25/2020 1:43 PM EST Body Mass Index 25.05 06/25/2020 1:43 PM EST Plan of Treatment Health Maintenance Due Date Last Done Comments Hepatitis B Vaccines (1 of 3 - 3-dose series) 1970 Hepatitis C Screening 1970 COVID-19 Vaccine (#1) 1970 Pneumococcal Vaccine (1 of 2 - PCV) 1976 Depression Screening 1982 BMI Counseling 1988 Diabetes: Eye Exam (No Retinopathy) 1988 Diabetes: Foot Exam 1988 Diabetes: Microalbumin Test 1988 Preventative Health Evaluation 1988 DTap / Tdap / Td (1 - Tdap) 1989 Colon Cancer Screening (Colonoscopy) 2015 Shingrix-Zoster Vaccine (1 o f 2) 2020 Influenza Vaccine (#1) 2024 Hemoglobin A1C Due 03/13/2024 09/12/2023, 06/15/2022, 10/12/2021 RSV Ped < 20 months Aged Out No longe r eligible based on patient's age to complete this topic Care Teams Home Mission Worker Relationship Specialty Start Date End Date Seferino Thapa MD PCP - General Internal Medicine 05/04/17
--- OUTSIDE RECORDS SUMMARY | 2024-10-07 09:16 | XMS_ITS | Encounter Summary ---
Author Organization [facility] Address [address] [place] [address] Care Team Providers Care Film Developing Machine Operator Name Role Phone Seferino Thapa MD Primary Care Provider Unavail able Encounter Details Date Type Department Care Team Description 12/12/2019 Treatment Jonathan Roper MD [address] [address] Karen Roper, RN Social History Tobacco Use Types Packs/Day Years [...] file Not on file Not on file documented as of this encounter Plan of Treatment Not on file documented as of this encounter Visit Diagnoses Not on filedocumented in this encounter Care Teams Film Developing Machine Operator Relationship Specialty Start Date End Date Seferino Thapa MD PCP - General Internal Medicine 05/04/17 documented as of this encounter
== END 2024-10-07 10:18 | disposition home or self-care (01) ==
LOC: HO.HUSH 08:46
PROVIDERS: PCP Internal Medicine; Visit Provider Urology
DX: E29.1 Testicular hypofunction (principal); E10.69 Type 1 diabetes mellitus with other specified complication; N52.1 Erectile dysfunction due to diseases classified elsewhere; N40.0 Benign prostatic hyperplasia without lower urinary tract symptoms
CPT/HCPCS: 99214

== ENCOUNTER 2025-04-23 08:46 | Outpatient (AMB) | payer BC, SELFPAY ==
--- OUTSIDE RECORDS SUMMARY | 2024-02-07 03:00 | XMS_ITS ---
Author Organization [facility] Address [address], [place] [id number] Care Team Providers Care Tack Cleaner Name Role Phone JUAQUINBRIANNE Primary Care Provider ALLERGIES No Known Allergies REASON FOR VISIT 41/ CPX MEDICATIONS Medication SIG (Take, Route, Frequency, Duration) Notes Start Date End Date Status Rosuvastatin Calcium 40 MG take 1 tablet by oral route every day Oral taking as directed 03/15/2018 Active Lisinopril 2.5 MG 1 tablet Oral Once a day 07/04/2022 Active Nexlizet 180 mg-10 mg tablet 180 mg-10 mg take 1 tablet by oral route every day ORAL taking as directed *Reorder from [employer] for eRx and Interaction Alerts* 06/12/2022 Active Basaglar KwikPen 100 UNIT/ML INJECT 15 UNIT BY SUBCUTANEOUS ROUTE EVERY DAY PER INSULIN PROTOCOL Subcutaneous Once a day taking as directed 01/12/2022 Active Glucagon Emergency Kit (human-recomb) 1 mg injection 1 mg for use as instructed for severe hypoglycemic reaction INJECTION taking as directed *Reorder from [employer] for eRx and Interaction Alerts* 10/11/2016 Active Afrezza 4 UNIT 1 cartridge at the beginning of each meal Inhalation Three times a day Active Hydrocortisone 2.5 % 1 application Externally Once a day for 30 day(s) 04/30/2023 Active OneTouch Delica Plus Lancet 30 gauge 30 gauge use to check blood glucose 3 times a day as directed MISCELL taking as directed *Reorder from [employer] for eRx and Interaction Alerts* 07/28/2020 Active OneTouch Verio apply 1 Drop by Misc.(Non-Drug; Combo Route) route 8 times every day as directed by physician In Vitro taking as directed 06/12/2022 Active Glucosamine Sulfate 750 MG take 1 by Oral route every day Oral taking as directed 10/01/2008 Active BD ULTRA-FINE PEN NEEDLE 32 gauge x /32 USE TO INJECT INSULIN 5-6 TIMES DAILY MISCELLANEOUS 4 times daily for 90 days taking as directed *Reorder from [email or web address] for eRx and Interaction Alerts* 06/06/2022 Active SOCIAL HISTORY Tobacco Use: Social History Observation Description Date Details (start date - stop date) Never Smoker NA - NA Sex Assigned At : Social History Observation Description Sex Assigned At Unknown Smoking Question Answer Notes Are you a: never smoker VITAL SIGNS Height 68.50 in 02/07/2024 Weight 175 lbs 02/07/2024 Blood pressure systolic 116 mm Hg 02/07/20 24 Blood pressure diastolic 72 mm Hg 024 BMI 26.22 kg/m2 02/07/2024 Encounters Encounter Location Date Provider Diagnosis [facility] [address] [place] [address] 02/07/2024 [facility] Encounter for genera l adult medical examination without abnormal findings Z00.00 ; Type 1 diabetes mellitus without complication E10.9 ; Mixed hyperlipidemia E78.2 and Essential (primary) hypertension I10 ASSESSMENTS Encounter Date Diagnosis Assessment Notes Treatment Notes Treatment Clinical Notes Section Notes 02/07/2024 Encounter for general adult medical examination without abnormal findings (ICD-10 - Z00.00) 1. Routine healthcare maintenance: Colonoscopy was done in February 2021 and will be next due in 2025. Fasting labs are up-to-date. He will get flu shot 2. Type 1 diabetes: A1c recently done by at 6.2. Continue present insulin. He has seen ophthalmology 3. Hyperlipidemia: Stable on current rosuvastatin and Nexilet will follow 4. Hypertension: 02/07/2024 Type 1 diabetes mellitus without complication (ICD-10 - E10.9) 1. Routine healthcare maintenance: Colonoscopy was done in February 2021 and will be next due in 2025. Fasting labs are up-to-date. He will get flu shot 2. Type 1 diabetes: A1c recently done by at 6.2. Continue present insulin. He has seen ophthalmology 3. Hyperlipidemia: Stable on current rosuvastatin and Nexilet will follow 4. Hypertension: 02/07/2024 Mixed hyperlipidemia (ICD-10 - E78.2) 1. Routine healthcare maintenance: Colonoscopy was done in February 2021 and will be next due in 2025. Fasting labs are up-to-date. He will get flu shot 2. Type 1 diabetes: A1c recently done by at 6.2. Continue present insulin. He has seen ophthalmology 3. Hyperlipidemia: Stable on current rosuvastatin and Nexilet will follow 4. Hypertension: 02/07/2024 Essential (primary) hypertension (ICD-10 - I10) 1. Routine healthcare maintenance: Colonoscopy was done in February 2021 and will be next due in 2025. Fasting labs are up-to-date. He will get flu shot 2. Type 1 diabetes: A1c recently done by at 6.2. Continue present insulin. He has seen ophthalmology 3. Hyperlipidemia: Stable on current rosuvastatin and Nexilet will follow 4. Hypertension: PLAN OF TREATMENT Medication Medication Name Sig Start Date Stop Date Notes Rosuvastatin Calcium 40 MG take 1 tablet by oral route every day Oral 03/15/2018 taking as directed Lisinopril 2.5 MG 1 tablet Oral Once a day 07/04/2022 Nexlizet 180 mg-10 mg tablet 180 mg-10 mg take 1 tablet by oral route every day ORAL 06/12/2022 taking as directed *Reorder from [employer] for eRx and Interaction Alerts* Basaglar KwikPen 100 UNIT/ML INJECT 15 UNIT BY SUBCUTANEOUS ROUTE EVERY DAY PER INSULIN PROTOCOL Subcutaneous Once a day 01/12/2022 taking as directed Glucagon Emergency Kit (human-recomb) 1 mg injection 1 mg for use as instructed for severe hypoglycemic reaction INJECTION 10/11/2016 taking as directed *Reorder from [employer] for eRx and Interaction Alerts* Afrezza 4 UNIT 1 cartridge at the beginning of each meal Inhalation Three times a day Next Appt Details Provider Name:BRIANNE CAFORD , 08/04/2025 08:45:00 AM, [address] [place], [phone], Progress Notes * Examination Category Sub-Category Detail Notes Category Not es General Examination HEENT: PERRLA, EOMI bilaterally, nose clear, oropharynx clear, no TM's normal, scleral icterus, , Normocephalic/atraumatic Neck: no lymphadenopathy, no thyroid abnormality, no bruit, normal ROM of C spine Heart: RRR, normal S1S2, no murmurs, clicks or rubs Lungs: clear to auscultatio n, no crackles, , no wheezes Abdomen: soft, non tender/non distended, no rebound tenderness, no guarding or rigidity, no masses palpated Extremities: no edema General Appearance no apparent distress Skin: no rash Neuro alert and oriented x 3, CN 2-12 intact, no focal motor abnormality, no tremor Peripheral pulses: bilaterally symetric al dorsalis pedis, posterior tibial, radial and Carotids Back: no spinal tenderness Rectal prostate enlarged Lymphatics No nodes in neck Psych: affect normal
--- OUTSIDE RECORDS SUMMARY | 2024-03-14 07:59 | XMS_ITS ---
Author Organization [facility] Address [address], [place] [id number] Care Team Providers Care Sales And Marketing Specialist Name Role Phone BRIANNE REZA Primary Care Provider REASON FOR VISIT Refill: Hydrocortisone 2.5 % Cream MEDICATIONS Medication SIG (Take, Route, Fr equency, Duration) Notes Start Date End Date Status Hydrocortisone 2.5 % 1 application Exter orin Once a day for 30 day(s) 04/30/2023 Active Encounters Encounter Location Date Provider Diagnosis [facility] [address] [place] [id number] 03/14/2024 BRIANNE REZA PLAN OF TREATMENT Medication Medication Name Sig Start Date Stop Date Notes Hydrocortisone 2.5 % 1 application Exter oirn Once a day for 30 day(s) 04/30/2023 Next Appt Details Provider Name:BRIANNE REZA , 08/04/2025 08:45:00 AM, [address] [place], [phone],
--- OUTSIDE RECORDS SUMMARY | 2024-06-09 09:17 | XMS_ITS ---
Author Organization [facility] Address [address], [place] [id number] Care Team Providers Care Order Clerk Name Role Phone BRIANNE REZA Primary Care Provider REASON FOR REFERRAL Reason OT request Diagnosis 1 Right lateral epicon dylitis (M77.11) Referral Organization [facility] Referring Provider First Name BRIANNE Referring Provider Last Name JUAQUIN Referring Provider Speciality Internal M edicine Referred Provider Specialty Occupational Therapy General Notes Yanelis KHAN CMA 12:00:34 PM >spoke with patient, faxed referral [facility] will [facility] to schedule visits. Forward to Martínez for processing, Yanelis KHAN CMA 06/17/2024 02:42:25 PM >Per ATI request and MD [facility], please see patient for OT (refaxed referral, see t/e) Referral Priority Routine REASON FOR VISIT schedule patient for PT Encounters Encounter Location Date Provider Diagnosis [address] [address] 06/09/2024 BRIANNE CAFORD Right lateral epicondylitis M77.11 ASSESSMENTS Encounter Date Diagnosis Assessment Notes Treatment Notes Treatment Clinical Notes Section Notes 06/09/2024 Right lateral epicondylitis (ICD-10 - M77.11) PLAN OF TREATMENT Referrals Referral Date Details OT request Next Appt Details Provider Name:BRIANNE REZA , 08/04/2025 08:45:00 AM, [address] [place] [address], [phone], Consultation Request Notes Referral Date Referring Provider Referred Provider Not es 06/09/2024 BRIANNE REZA , OT request
--- OUTSIDE RECORDS SUMMARY | 2024-06-16 06:11 | XMS_ITS ---
Author Organization [facility] Address [address], [place] [id number] Care Team Providers Care Platform Power Technician Name Role Phone BRIANNE REZA Primary Care Provider [phone] REASON FOR VISIT PT Encounters Encounter Location Date Provider Diagnosis [facility] [address] [place] [address] 06/16/2024 BRIANNE REZA PLAN OF TREATMENT Next Appt Details Provider Name:BRIANNE REZA , 08/04/2025 08:45:00 AM, [address] [place], [address],
--- OUTSIDE RECORDS SUMMARY | 2024-06-17 07:56 | XMS_ITS ---
Author Organization [facility] Address [address] [place], [place] [id number] Care Team Providers Care Transmission And Coordination Engineer Name Role Phone BRIANNE REZA Primary Care Provider [phone] REASON FOR VISIT change order Encounters Encounter Location Date Provider Diagnosis [facility] [address] [place] [address] 06/17/2024 BRIANNE REZA PLAN OF TREATMENT Next Appt Details Provider Name:BRIANNE REZA , 08/04/2025 08:45:00 AM, [address] [place], [address],
--- OUTSIDE RECORDS SUMMARY | 2024-06-23 04:04 | XMS_ITS ---
Author Organization [facility] Address [address] [place], [place] [id number] Care Team Providers Care Community Arts Officer Name Role Phone BRIANNE REZA Primary Care Provider REASON FOR VISIT change order to OT Encounters Encounter Location Date Provider Diagnosis [address] [address] 06/23/2024 BRIANNE REZA PLAN OF TREATMENT Next Appt Details Provider Name:BRIANNE REZA , 08/04/2025 08:45:00 AM, [address] [place], [address],
--- OUTSIDE RECORDS SUMMARY | 2024-08-07 03:00 | XMS_ITS ---
Author Organization [facility] Address [address] [place], [place] [id number] Care Team Providers Care Chairman Name Role Phone BRIANNE REZA Primary Care Provider ALLERGIES No Known Allergies REASON FOR VISIT 41/ 6mo MEDICATIONS Medication SIG (Take, Route, Frequency, Duration) Notes Start Date End Date Status OneTouch Verio apply 1 Drop by [facility].(Non-Drug; Combo Route) route 8 times every day as directed by physician In Vitro taking as directed 06/12/2022 Active Glucosamine Sulfate 750 MG take 1 by Oral route every day Oral taking as directed 10/01/2008 Active Rosuvastatin Calcium 40 MG take 1 tablet by oral route every day Oral taking as directed 03/15/2018 Active BD ULTRA-FINE PEN NEEDLE 32 gauge x 5/32 USE TO INJECT INSULIN 5-6 TIMES DAILY MISCELLANEOUS 4 times daily for 90 days taking as directed *Reorder from [employer] for eRx and Interaction Alerts* 06/06/2022 Active Lisinopril 2.5 MG 1 tablet Oral Once a day 07/04/2022 Active Basaglar KwikPen 100 UNIT/ML INJECT 15 UNIT BY SUBCUTANEOUS ROUTE EVERY DAY PER INSULIN PROTOCOL Subcutaneous Once a day taking as directed 01/12/2022 Active Nexlizet 180 mg-10 mg tablet 180 mg-10 mg take 1 tablet by oral route every day ORAL taking as directed *Reorder from [employer] for eRx and Interaction Alerts* 06/12/2022 Active BD Pen Needle Acacia 2nd Gen 32G X 4 MM USE TO INJECT INSULIN 5 TO 6 TIMES A DAY for 66 Active Hydrocortisone 2.5 % 1 application Externally Once a day for 30 day(s) 04/30/2023 Active Afrezza 4 UNIT 1 cartridge at the beginning of each meal Inhalation Three times a day Active OneTouch Delica Plus Lancet 30 gauge 30 gauge use to check blood glucose 3 times a day as directed MISCELL taking as directed *Reorder from [employer] for eRx and Interaction Alerts* 07/28/2020 Active Glucagon Emergency Kit (human-recomb) 1 mg injection 1 mg for use as instructed for severe hypoglycemic reaction INJECTION taking as directed *Reorder from [employer] for eRx and Interaction Alerts* 10/11/2016 Active SOCIAL HISTORY Tobacco Use: Social History Observation Description Date Details (start date - stop date) Never Smoker NA - NA Sex Assigned At : Social History Observation Description Sex Assigned At Unknown Smoking Question Answer Notes Are you a: never smoker PROBLEMS Problem Type ICD Code Onset Dates Problem Status W/U Status Risk SNOMED Code Notes Problem Nocturia (R35.1) Active confirmed [id number] VITAL SIGNS Height 68.50 in 08/07/2024 Weight 177.2 lbs 08/07/2024 Blood pressure systolic 124 mm Hg 08/08/19 25 Blood pressure diastolic 76 mm Hg 025 BMI 26.55 kg/m2 08/07/2024 Encounters Encounter Location Date Provider Diagnosis [facility] [address] [place] [address] 08/07/2024 [facility] Type 1 diabetes mellitus without complication E10.9 ; Mixed hyperlipidemia E78.2 ; Essential (primary) hypertension I10 ; Nocturia R35.1 and Benign prostatic hyperplasia with lower urinary tract symptoms N40.1 ASSESSMENTS Encounter Date Diagnosis Assessment Notes Treatment Notes Treatment Clinical Notes Section Notes 08/07/2024 Type 1 diabetes mellitus without complication (ICD-10 - E10.9) 1. Type 1 diabetes mellitus: Recent A1c with endocrine at 6.4. No adjustments made today 2. Hyperlipidemia : Due for repeat panel. Last LDL was 64 under good control on Crestor/Nexliz et 3. Hypertension: Stable on present therapy. No changes made today 08/07/2024 Mixed hyperlipidemia (ICD-10 - E78.2) 1. Type 1 diabetes mellitus: Recent A1c with endocrine at 6.4. No adjustments made today 2. Hyperlipidemia : Due for repeat panel. Last LDL was 64 under good control on Crestor/Nexliz et 3. Hypertension: Stable on present therapy. No changes made today 08/07/2024 Essential (primary) hypertension (ICD-10 - I10) 1. Type 1 diabetes mellitus: Recent A1c with endocrine at 6.4. No adjustments made today 2. Hyperlipidemia : Due for repeat panel. Last LDL was 64 under good control on Crestor/Nexliz et 3. Hypertension: Stable on present therapy. No changes made today 08/07/2024 Nocturia (ICD-10 - R35.1) 1. Type 1 diabetes mellitus: Recent A1c with endocrine at 6.4. No adjustments made today 2. Hyperlipidemia : Due for repeat panel. Last LDL was 64 under good control on Crestor/Nexliz et 3. Hypertension: Stable on present therapy. No changes made today 08/07/2024 Benign prostatic hyperplasia with lower urinary tract symptoms (ICD-10 - N40.1) 1. Type 1 diabetes mellitus: Recent A1c with endocrine at 6.4. No adjustments made today 2. Hyperlipidemia : Due for repeat panel. Last LDL was 64 under good control on Crestor/Nexliz et 3. Hypertension: Stable on present therapy. No changes made today PLAN OF TREATMENT Medication Medication Name Sig Start Date Stop Date Notes Rosuvastatin Calcium 40 MG take 1 tablet by oral route every day Oral 03/15/2018 taking as directed Lisinopril 2.5 MG 1 tablet Oral Once a day 07/04/2022 Basaglar KwikPen 100 UNIT/ML INJECT 15 UNIT BY SUBCUTANEOUS ROUTE EVERY DAY PER INSULIN PROTOCOL Subcutaneous Once a day 01/12/2022 taking as directed Nexlizet 180 mg-10 mg tablet 180 mg-10 mg take 1 tablet by oral route every day ORAL 06/12/2022 taking as directed *Reorder from [employer] for eRx and Interaction Alerts* Afrezza 4 UNIT 1 cartridge at the beginning of each meal Inhalation Three times a day Next Appt Details Provider Name:BRIANNE REZA , 08/04/2025 08:45:00 AM, [address] [place], [address], Progress Notes * Examination Category Sub-Category Detail Notes Category Not es General Examination Heart: RSR, normal S1S2 Lungs: clear to auscultatio n Extremities: no edema General Appearance no apparent distress , pleasant Psych: alert, oriented X 3 Other normal affect History and Physical Notes * HPI (History of Present Illness) Category Sub-Category Detail Notes Category Not es General Patient is feel ing well. Blood sugars at times low in the morning but he is asymptomatic. He is not having any chest pain palpitations or shortness of breath.
--- OUTSIDE RECORDS SUMMARY | 2024-09-07 13:45 | XMS_ITS ---
Author Organization [facility] Address [address] [place], [place] [id number] Care Team Providers Care Warehouse Representative Name Role Phone BRIANNE REZA Primary Care Provider REASON FOR VISIT labs Encounters Encounter Location Date Provider Diagnosis [facility] [address] [place] [address] 09/07/2024 BRIANNE REZA PLAN OF TREATMENT Next Appt Details Provider Name:BRIANNE REZA , 08/04/2025 08:45:00 AM, [address] [place], [address],
--- OUTSIDE RECORDS SUMMARY | 2025-01-23 10:57 | XMS_ITS ---
Author Organization [facility] Address [address] [place], [place] [id number] Care Team Providers Care Parole Board Member Name Role Phone BRIANNE REZA Primary Care Provider REASON FOR VISIT refill Lisinopril MEDICATIONS Medication SIG (Take, Route, Fr equency, Duration) Notes Start Date End Date Status Lisinopril 2.5 MG 1 tablet Oral Once a day for 90 days 07/04/2022 Active Encounters Encounter Location Date Provider Diagnosis [facility] [address] [place] [address] 01/23/2025 BRIANNE JUAQUIN Essential (primary) hypertension I10 ASSESSMENTS Encounter Date Diagnosis Assessment Notes Treatment Notes Treatment Clinical Notes Section Notes 01/23/2025 Essential (primary) hypertension (ICD-10 - I10) PLAN OF TREATMENT Medication Medication Name Sig Start Date Stop Date Notes Lisinopril 2.5 MG 1 tablet Oral Once a day for 90 days Next Appt Details Provider Name:BRIANNE REZA , 08/04/2025 08:45:00 AM, [address] [place], [address],
--- OUTSIDE RECORDS SUMMARY | 2025-02-10 03:00 | XMS_ITS ---
Author Organization [facility] Address [address] [place], [place] [id number] Care Team Providers Care Ui Application Developer Name Role Phone BRIANNE REZA Primary Care Provider ALLERGIES No Known Allergies RESULTS Component Value Reference Range Notes EKG Reviewed date:02/17/2025 08:10:18 AM Interpretation: Performing Lab: Notes/Report: ECGDiastolicBP ECGHr ECGPRInterval ECGPWaveAxis ECGQRSDuration ECGQrsWaveAxis ECGQTcInterval ECGQTInterval ECGSystolicBP ECGTWaveAxis RR_DiastolicBP RR_MaxRRInterval RR_MeanHR RR_MeanRRInterval RR_MinRRInterval RR_NumBeats RR_NumNormalBeats RR_SystolicBP REASON FOR VISIT CPX, declined flu vaccine MEDICATIONS Medication SIG (Take, Route, Frequency, Duration) Notes Start Date End Date Status Rosuvastatin Calcium 40 MG take 1 tablet by oral route every day Oral taking as directed 03/15/2018 Active Basaglar KwikPen 100 UNIT/ML INJECT 15 UNIT BY SUBCUTANEOUS ROUTE EVERY DAY PER INSULIN PROTOCOL Subcutaneous Once a day taking as directed 01/12/2022 Active Afrezza 4 UNIT 1 cartridge at the beginning of each meal Inhalation Three times a day Active Lisinopril 2.5 MG 1 tablet Oral Once a day 07/04/2022 Active BD Pen Needle Acacia 2nd Gen 32G X 4 MM USE TO INJECT INSULIN 5 TO 6 TIMES A DAY for 66 Active Hydrocortisone 2.5 % 1 application Externally Once a day for 30 day(s) 04/30/2023 Active Glucagon Emergency Kit (human-recomb) 1 mg injection 1 mg for use as instructed for severe hypoglycemic reaction INJECTION taking as directed *Reorder from [facility] for eRx and Interaction Alerts* 10/11/2016 Active OneTouch Delica Plus Lancet 30 gauge 30 gauge use to check blood glucose 3 times a day as directed MISCELL taking as directed *Reorder from [facility] for eRx and Interaction Alerts* 07/28/2020 Active OneTouch Verio apply 1 Drop by Misc.(Non-Drug; Combo Route) route 8 times every day as directed by physician In Vitro taking as directed 06/12/2022 Active Glucosamine Sulfate 750 MG take 1 by Oral route every day Oral taking as directed 10/01/2008 Active BD ULTRA-FINE PEN NEEDLE 32 gauge x USE TO INJECT INSULIN 5-6 TIMES DAILY MISCELLANEOUS 4 times daily for 90 days taking as directed *Reorder from [facility] for eRx and Interaction Alerts* 06/06/2022 Active Nexlizet 180 mg-10 mg tablet 180 mg-10 mg take 1 tablet by oral route every day ORAL taking as directed *Reorder from [facility] for eRx and Interaction Alerts* 06/12/2022 Active SOCIAL HISTORY Tobacco Use: Social History Observation Description Date Details (start date - stop date) Never Smoker NA - NA Sex Assigned At : Social History Observation Description Sex Assigned At Unknown Smoking Question Answer Notes Are you a: never smoker VITAL SIGNS Height 68.50 in 02/10/2025 Weight 171 lbs 02/10/2025 Blood pressure systolic 124 mm Hg 02/11/20 25 Blood pressure diastolic 74 mm Hg 025 BMI 25.62 kg/m2 02/10/2025 Encounters Encounter Location Date Provider Diagnosis [facility] [address] [place] [address] 02/10/2025 [facility] Encounter for genera l adult medical examination without abnormal findings Z00.00 ; Type 1 diabetes mellitus without complication E10.9 ; Essential (primary) hypertension I10 and Mixed hyperlipidemia E78.2 ASSESSMENTS Encounter Date Diagnosis Assessment Notes Treatment Notes Treatment Clinical Notes Section Notes 02/10/2025 Encounter for general adult medical examination without abnormal findings (ICD-10 - Z00.00) 1. routine healthcare maintenance: Colonoscopy is due next year in February. Fasting labs are up-to-date. He will get flu shot next month 2. Type 1 diabetes mellitus: Recent A1c of 6.4 with endocrine. Continue current insulin 3. Hypertension: Well-controlle d on present therapy. No changes made today 4. Hyperlipidemia : Well-controlle d on September labs on current medication regimen. Will maintain same 02/10/2025 Type 1 diabetes mellitus without complication (ICD-10 - E10.9) 1. routine healthcare maintenance: Colonoscopy is due next year in February. Fasting labs are up-to-date. He will get flu shot next month 2. Type 1 diabetes mellitus: Recent A1c of 6.4 with endocrine. Continue current insulin 3. Hypertension: Well-controlle d on present therapy. No changes made today 4. Hyperlipidemia : Well-controlle d on September labs on current medication regimen. Will maintain same 02/10/2025 Essential (primary) hypertension (ICD-10 - I10) 1. routine healthcare maintenance: Colonoscopy is due next year in February. Fasting labs are up-to-date. He will get flu shot next month 2. Type 1 diabetes mellitus: Recent A1c of 6.4 with endocrine. Continue current insulin 3. Hypertension: Well-controlle d on present therapy. No changes made today 4. Hyperlipidemia : Well-controlle d on September labs on current medication regimen. Will maintain same 02/10/2025 Mixed hyperlipidemia (ICD-10 - E78.2) 1. routine healthcare maintenance: Colonoscopy is due next year in February. Fasting labs are up-to-date. He will get flu shot next month 2. Type 1 diabetes mellitus: Recent A1c of 6.4 with endocrine. Continue current insulin 3. Hypertension: Well-controlle d on present therapy. No changes made today 4. Hyperlipidemia : Well-controlle d on September labs on current medication regimen. Will maintain same PLAN OF TREATMENT Medication Medication Name Sig Start Date Stop Date Notes Rosuvastatin Calcium 40 MG take 1 tablet by oral route every day Oral 03/15/2018 taking as directed Basaglar KwikPen 100 UNIT/ML INJECT 15 UNIT BY SUBCUTANEOUS ROUTE EVERY DAY PER INSULIN PROTOCOL Subcutaneous Once a day 01/12/2022 taking as directed Afrezza 4 UNIT 1 cartridge at the beginning of each meal Inhalation Three times a day Lisinopril 2.5 MG 1 tablet Oral Once a day 07/04/2022 Nexlizet 180 mg-10 mg tablet 180 mg-10 mg take 1 tablet by oral route every day ORAL 06/12/2022 taking as directed *Reorder from [facility] for eRx and Interaction Alerts* Next Appt Details Provider Name:BRIANNE REZA , 08/04/2025 08:45:00 AM, [address] [facility], [place], [address], Progress Notes * Examination Category Sub-Category Detail [...] Carotids Back: no spinal tenderness Rectal prostate wnl Lymphatics No nodes in neck Psych: affect normal History and Physical Notes * HPI (History of Present Illness) Category Sub-Category Detail Notes Category Not es Depression Screening PHQ-2 (2015 Edition) Little interest or pleasure in doing things?: Not at all Feeling down, depressed, or hopeless?: N ot at all Total Score: 0
--- NOTE | 2025-04-23 08:57 | MHC.OFFVIS ---
Intake Visit Reasons: 6M PSA/ Testosterone total Intake Note: Patient is present for 6M/LABS Urology Medication:TESTOSTERONE,TADALAFIL Antibiotic Allergy:NONE Blood Thinner:NONE Labs done 03/31/25 : Total Testosterone 488, Total PSA 0.65 PVR: 12 mls Press Writer Required: No Accompanied by: Self / Same As Patient Allergies No Known Allergies Allergy (Verified 04/23/25 09:00) HPI Comments Details: Ed is a pleasant male. He is a patient of Dr. Thapa. 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 Feels less of a roller coaster. Hypogonadism Had been placed on 100 mg every 6 days Initiated hormone therapy replacement in 2018 in response to decreased libido 02/24 T 926 F 221, 09/25 966 H 51.7, 03/27 T 790 H 52, 09/05/24 1113 52 0.6 (Sun), 03/28 500 0.65 51.7 Current labs show a mid range total T and free, borderline hematocrit Encouraged to moved to 7 day cycle with Sunday injection day and Sunday or Sunday testing Total daily insulin usage 1 unit per grams of carbs 15-20 gm PFSH Medical History Type 1 diabetes mellitus Surgical History History of shoulder surgery History of umbilical hernia repair Social History Alcohol intake: never Patient Tobacco Use Status: Never used Tobacco Current occupational status: employed Review of Systems Const Denies chills and Denies fever(s) Card Reports no additional complaints and Denies syncope Resp Denies cough GI Denies abdominal pain and Denies heartburn Reports as per HPI and Denies change in libido Neuro Denies syncope Psych Denies change in libido Endo Denies change in libido Physical Exam Const General: cooperative, healthy appearing, comfortable and no acute distress Orientation/consciousness: patient oriented x3 HEENT Face and sinus: Yes normal facial exam Mouth: moist mucous membranes Neck Neck: Yes normal visual inspection, Yes full ROM and Yes trachea midline Chest Chest palpation & inspection: normal inspection of the chest Resp Effort & Inspection: normal respiratory effort, able to speak in complete sentences and no respiratory distress GI Inspection: Yes normal to inspection Back/Spine/Pelvis Cervical Spine: normal cervical lordosis Thoracic/Lumbar Spine: thoracic and lumbar spine normal to inspection Skin General skin exam: no rashes or lesions noted Neuro General: patient oriented x3, gait normal, tone normal and moves all extremities Extrem General: Yes normal to inspection and Yes capillary refill normal Office Procedures Post Void Residual Post Residual Void Post Void Residual (PVR): 12 [id number] Void Residual by ultrasound Results AMB Urinalysis, Automated UA Leukoctes 0 Pancho/uL Last Edit by Mila Palmer [facility] on 04/23/25 09:10 UA Nitrite Negative Last Edit by Mila Palmer [facility] on 04/23/25 09:10 UA Urobilinogen 0.2 mg/dL Last Edit by Mila Palmer [facility] on 04/23/25 09:10 UA Protein 0 mg/dL Last Edit by Mila Palmer [facility] on 04/23/25 09:10 UA pH 6.5 Last Edit by Mila Palmer [facility] on 04/23/25 09:10 UA Blood 0 Dre/uL Last Edit by Mila Palmer [facility] on 04/23/25 09:10 UA Specific Killbuck 1.010 Last Edit by Mila Palmer [facility] on 04/23/25 09:10 UA Ketone Negative Last Edit by Mila Palmer [facility] on 04/23/25 09:10 UA Bilirubin 0 mg/dL Last Edit by Mila Palmer [facility] on 04/23/25 09:10 UA Glucose 0 mg/dL Last Edit by Mila Palmer [facility] on 04/23/25 09:10 Results Reviewed Results Reviewed: Laboratory Last Values Urine pH (Auto) 6.5 04/23/25 09:10 Specific Killbuck (Auto) 1.010 04/23/25 09:10 Urine Protein (Auto) 0 mg/dL 04/23/25 09:10 Glucose (UA)(Auto) 0 mg/dL 04/23/25 09:10 Urine Ketones (Auto) Negative 04/23/25 09:10 Urine Blood (Auto) 0 Dre/uL 04/23/25 09:10 Urine Nitrite (Auto) Negative 04/23/25 09:10 Urine Bilirubin (Auto) 0 mg/dL 04/23/25 09:10 Urine Urobilinogen (Auto) 0.2 mg/dL 04/23/25 09:10 Leukocyte Esterase (Auto) 0 Pancho/uL 04/23/25 09:10 Assessment & Plan Assessment & Plan (1) Diabetic erectile dysfunction associated with type 1 diabetes mellitus: Code(s): E10.69 - Type 1 diabetes mellitus with other specified complication; N52.1 - Erectile dysfunction due to diseases classified elsewhere Category: Medical (2) BPH (benign prostatic hyperplasia): Code(s): N40.0 - Benign prostatic hyperplasia without lower urinary tract symptoms Category: Medical Plan Continue six-month follow-up lab work Orders: Orders Prostate Specific Antigen 5 Months E29.1 - Testicular hypofunction Testosterone, Total 5 Months E29.1 - Testicular hypofunction Hematocrit 5 Months E29.1 - Testicular hypofunction Medications: Refilled tadalafil 5 mg PO DAILY 90 tabs 1RF 90 days E29.1 - Testicular hypofunction testosterone cypionate Split dose 0.2 mL 2 times a week Sunday evening and morning. 80 mg (0.4 mL) subcut QWEEK 4 mL 5RF 28 days E29.1 - Testicular hypofunction Patient Instructions: This note is constructed using voice recognition software. While every effort has been made to ensure accuracy senior planner errors may have been included. Imaging studies, laboratory and physical exam results were discussed and reviewed in detail. No major barriers to patient understanding were identified. An opportunity to ask questions regarding the treatment plan was provided. All questions were answered. The patient expressed understanding and agreement with the above treatment plan. The patient is aware they should contact our office by phone for worsening of their current condition or the appearance of new urologic symptoms. Compliance is encouraged with any medications and followup testing that is ordered. It is a privilege to participate in the urologic care of your patient. If you have any questions or concerns regarding treatment for the above conditions, or other urologic issues, please do not hesitate to contact me. The office telephone contact is [phone]. Sincerely, Dr Tanner Cantu MD, [facility] - Urology Compassionate Specialist Care for the Genitourinary System Coding Level of Care Code Est Pt Level 3 (46386) Complex EM visit Add On G2211 Diagnoses Diabetic erectile dysfunction associated with type 1 diabetes mellitus E10.69; N52.1 BPH (benign prostatic hyperplasia) N40.0 CPT Codes Post Residual Void - PVR CPT Code: 22822-Qkjs Void Residual by ultrasound ([id number])
--- OUTSIDE RECORDS SUMMARY | 2025-04-23 10:12 | XMS_ITS | Patient Health Record ---
Author Organization [facility] Address [address], [place] [id number] Care Team Providers Care Custodial Laborer Name Role Phone BRIANNE REZA Primary Care Provider [phone] ALLERGIES No Known Allergies REASON FOR REFERRAL Reason OT request Diagnosis 1 Right lateral epicon dylitis (M77.11) Referral Organization [facility] soci[facility] Referring Provider First Name BRIANNE Referring Provider Last Name JUAQUIN Referring Provider Speciality Internal M edicine Referred Provider Specialty Occupational Therapy General Notes Yanelis KHAN CMA 12:00:34 PM >spoke with patient, faxed referral to [facility] Anjum Cabreraevanston- he will call to schedule visits. Forward to Martínez for processing, Yanelis KHAN CMA 06/17/2024 02:42:25 PM >Per [facility]I request and MD MILLS, please see patient for OT (refaxed referral, see t/e) Referral Priority Routine MEDICATIONS Medication SIG (Take, Route, Frequency, Duration) Notes Start Date End Date Status Afrezza 4 UNIT 1 cartridge at the beginning of each meal Inhalation Three times a day Active Glucagon Emergency Kit (human-recomb) 1 mg injection 1 mg for use as instructed for severe hypoglycemic reaction INJECTION taking as directed *Reorder from [employer] for eRx and Interaction Alerts* 10/11/2016 Active OneTouch Delica Plus Lancet 30 gauge 30 gauge use to check blood glucose 3 times a day as directed MISCELL taking as directed *Reorder from [employer] for eRx and Interaction Alerts* 07/28/2020 Active Lisinopril 2.5 MG 1 tablet Oral Once a day 07/04/2022 Active BD ULTRA-FINE PEN NEEDLE 32 gauge x 5/32 USE TO INJECT INSULIN 5-6 TIMES DAILY MISCELLANEOUS 4 times daily for 90 days taking as directed *Reorder from [facility] for eRx and Interaction Alerts* 06/06/2022 Active Nexlizet 180 mg-10 mg tablet 180 mg-10 mg take 1 tablet by oral route every day ORAL taking as directed *Reorder from [facility] for eRx and Interaction Alerts* 06/12/2022 Active BD Pen Needle Acacia 2nd Gen 32G X 4 MM USE TO INJECT INSULIN 5 TO 6 TIMES A DAY for 66 Active OneTouch Verio apply 1 Drop by [...] a day taking as directed 01/12/2022 Active Embecta Pen Needle Acacia 2 Gen 32G X 4 MM USE 5 TO 6 TIMES DAILY for 66 Active Hydrocortisone 2.5 % 1 application Externally Once a day for 30 day(s) 04/30/2023 Active IMMUNIZATIONS Vaccine Route Administration Date Status Comme nts Pfizer COVID-19,mRNA, LNP-S, PF, 30mcg/0.3mL dose Unknown 08/16/2020 Administered Pfizer COVID-19,mRNA, LNP-S, PF, 30mcg/0.3mL dose Unknown 09/06/2020 Administered Td (Tetanus Diphtheria) Unknown 11/02/2006 Administered Td (Tetanus Diphtheria) IM Intramuscular 04/10/2012 Admini stered TDAP Unknown 04/10/2012 Administered Zoster recombinant Unknown 07/15/2020 Administered Zoster recombinant Unknown 10/03/2020 Administered [id number] 7 SOCIAL HISTORY Tobacco Use: Social History Observation Description Date Details (start date - stop date) Never Smoker NA - NA Sex Assigned At : Social History Observation Description Sex Assigned At Unknown Smoking Question Answer Notes Are you a: never smoker PROBLEMS Problem Type ICD Code Onset Dates Problem Status W/U Status Risk SNOMED Code Notes Problem Essential (primary) hypertension (I10) Active confirmed 25619771 Problem Nocturia (R35.1) Active confirmed 52646 4000 Problem Type 1 diabetes mellitus without complication (E10.9) Active confirmed 712867619 Problem Mixed hyperlipidemia (E78.2) 12/11/19 10 Active confirmed Mixed hyperlipidemia (002251488) VITAL SIGNS Blood pressure diastolic 74 mm Hg 02/10/2025 Height 68.50 in 02/10/2025 Blood pressure systolic 124 mm Hg 02/10/2025 Weight 171 lbs 02/10/2025 BMI 25.62 kg/m2 02/10/2025 Encounters Encounter Location Date Provider Diagnosis [address] [address] 06/09/2024 [facility] Right lateral epicondylitis M77.[address] [address] 06/16/[address] [address] 06/17/[address] [address] 06/23/[address] [address] 08/07/2024 [facility] Type 1 diabetes mellitus without complication E10.9 ; Mixed hyperlipidemia E78.2 ; Essential (primary) hypertension I10 ; Nocturia R35.1 and Benign prostatic hyperplasia with lower urinary tract symptoms N40.[address] [address] 09/07/[address] [address] 01/23/2025 [facility] Essential (primary) hypertension I10 [address] [address] 02/10/2025 [facility] Encounter for genera l adult medical examination without abnormal findings Z00.00 ; Type 1 diabetes mellitus without complication E10.9 ; Essential (primary) hypertension I10 and Mixed hyperlipidemia E78.2 ASSESSMENTS Encounter Date Diagnosis Assessment Notes Treatment Notes Treatment Clinical Notes Section Notes 08/07/2024 Mixed hyperlipidemia (ICD-10 - E78.2) 1. Type 1 diabetes mellitus: Recent A1c with endocrine at 6.4. No adjustments made today 2. Hyperlipidemia : Due for repeat panel. Last LDL was 64 under good control on Crestor/Nexliz et 3. Hypertension: Stable on present therapy. No changes made today 08/07/2024 Type 1 diabetes mellitus without complication (ICD-10 - E10.9) 1. Type 1 diabetes mellitus: Recent A1c with endocrine at 6.4. No adjustments made today 2. Hyperlipidemia : Due for repeat panel. Last LDL was 64 under good control on Crestor/Nexliz et 3. Hypertension: Stable on present therapy. No changes made today 06/09/2024 Right lateral epicondylitis (ICD-10 - M77.11) 02/10/2025 Encounter for general adult medical examination [...] on current medication regimen. Will maintain same 01/23/2025 Essential (primary) hypertension (ICD-10 - I10) 08/07/2024 Essential (primary) hypertension (ICD-10 - I10) 1. Type 1 diabetes mellitus: Recent A1c with endocrine at 6.4. No adjustments made today 2. Hyperlipidemia : Due for repeat panel. Last LDL was 64 under good control on Crestor/Nexliz et 3. Hypertension: Stable on present therapy. No changes made today 02/10/2025 Essential (primary) hypertension (ICD-10 - I10) [...] on current medication regimen. Will maintain same 08/07/2024 Nocturia (ICD-10 - R35.1) 1. Type 1 diabetes mellitus: Recent A1c with endocrine at 6.4. No adjustments made today 2. Hyperlipidemia : Due for repeat panel. Last LDL was 64 under good control on Crestor/Nexliz et 3. Hypertension: Stable on present therapy. No changes made today 02/10/2025 Mixed hyperlipidemia (ICD-10 - E78.2) 1. [...] on current medication regimen. Will maintain same 08/07/2024 Benign prostatic hyperplasia with lower urinary tract symptoms (ICD-10 - N40.1) 1. Type 1 diabetes mellitus: Recent A1c with endocrine at 6.4. No adjustments made today 2. Hyperlipidemia : Due for repeat panel. Last LDL was 64 under good control on Crestor/Nexliz et 3. Hypertension: Stable on present therapy. No changes made today PLAN OF TREATMENT Next Appt Details Provider Name:BRIANNE REZA , 08/04/2025 08:45:00 AM, [address] [place], [address], Insurance Providers Payer Name Payer Address Payer Phone Subscriber Number Group Number Insured Name Patient Relationship to Insured Coverage Start Date Coverage End Date [facility] [address] [place] [address] [id number] CARVAJAL Self - patient is the insured 3 MEDICAL (GENERAL) HISTORY Medical History History ICD Code Disease : COVID, Elevated lipids, diabetes mellitus, Surgical History Surgery Date(Month/Year) Disease : umbilical hernia, Sx_Procedure : laparoscopic surgery
--- OUTSIDE RECORDS SUMMARY | 2025-04-23 10:13 | XMS_ITS | Clinical Summary ---
Author Organization [facility] Address [address] [place] [address] Care Team Providers Care Christmas Tree Farm Manager Name Role Phone Seferino Thapa MD Primary Care Provider Unavail able Allergies No known active allergies Medications Medication Sig Dispensed Refills Start Date End Date Status Insulin Glargine (BASAGLAR KWIKPEN) 100 UNIT/ML SOPN INJECT 14 UNIT BY SUBCUTANEOUS ROUTE EVERY DAY PER INSULIN PROTOCOL 3 04/11/2017 Active [place]-3 Fatty Acids (FISH OIL PO) Take by [...] 61 06/25/2020 1:43 PM EST Temperature 36.9 C (98.4 F) 08/27/2019 8:10 AM EDT Respiratory Rate 20 08/27/2019 8:10 AM EDT [...] Shingrix-Zoster Vaccine (1 o f 2) 2020 Hemoglobin A1C Due 03/13/2024 09/12/2023, 06/15/2022, 10/12/2021 Influenza Vaccine (#1) 2025 RSV Ped < 20 months Aged Out No longe r eligible based on patient's age to complete this topic Care Teams Christmas Tree Farm Manager Relationship Specialty Start Date End Date Seferino Thapa MD PCP - General Internal Medicine 05/04/17
--- OUTSIDE RECORDS SUMMARY | 2025-04-23 10:14 | XMS_ITS | Clinical Summary ---
Author Organization [facility], Located Within [facility] Address [address] [place] [address] Care Team Providers Care Beauty Operator Apprentice Name Role Phone Seferino Thapa MD Primary Care Provider [phone] Matt Whitmore MD Unavailable Tanner Cantu MD Unavailable [phone] Allergies No known active allergies Medications rosuvastatin (CRESTOR) 40 MG tablet Take 1 tablet (40 mg total) by mouth daily. Active NovoLOG FLEXPEN, insulin aspart, 100 UNIT/ML subcutaneous injection INJECT 4 6 UNITS, SUBCUTANEOUSLY 3 TIMES A DAY BEFORE MEALS DIRECTED. ROTATE INJECTION SITES. Active testosterone cypionate (DEPO-TESTOSTERON E CYPIONATE) 200 mg/mL injection Inject 0.5 mL (100 mg total) into the shoulder, thigh, or buttocks. Every 5 days Active Magnesium 400 MG Cap Take 1 capsule by mouth daily. Active tadalafil (CIALIS) 10 MG tablet Take 1-2 tablets (10-20 mg total) by mouth as needed. Active coenzyme Q10 (CO Q 10) 100 MG capsule Take 1 capsule (100 mg total) by mouth daily. Active Multiple Vitamin tablet Take 1 tablet by mouth daily. Active omega-3 fatty acids (FISH OIL) 1000 MG Cap capsule Take 1 capsule (1,000 mg total) by mouth daily. Active Insulin Pen Needle (BD Pen Needle Acaica U/F) 32G X 4 MM Misc by Does not apply route. Active glucose blood (FREESTYLE LITE) test strip [...] by Does not apply route. Active lisinopril (PRINIVIL,ZeSTRIL ) 2.5 MG tablet Take 1 tablet (2.5 mg total) by mouth daily. 023 Active insulin glargine (Lantus SoloStar) 100 units/mL prefilled pen injection Inject 17 Units under the skin. 024 Active Continuous Glucose Sensor (Dexcom G7 Sensor) Misc CHANGE EVERY 10 DAYS 024 Active Glucagon (Gvoke HypoPen 2-Pack) 1 MG/0.2ML Solution Auto-injector Inject 1 mg under the skin. 024 Active Fiasp FlexTouch 100 UNIT/ML prefilled pen injection TAKE DIRECTED UP TO A MAXIMUM OF 25 UNITS DAILY CARB RATIO 15, ISF 15. 025 Active Insulin Regular Human (Afrezza) 60x4 &60x8 & 60x12 UNIT Powder See Instructions, Use 4 for small meal Use 8 units for medium meal cartridge must be room temp for 10 minutes before use, # 180 each, 5 Refills, Maintenance, 07/18/24 3:37:00 PM EST, Powder, [facility], Please dispense titration pack for 4 unit and 8 unit with 2 inhalers. [facility] 16410-234-86, 175.26, cm, 07/18/24 15:07:00 EST, Height 025 Active B-D SYRINGE LUER-JEREL 1CC 1 ML Misc USE 18G NEEDLE TO DRAW UP TESTOSTERONE AND 22G TO INJECT 025 Active triamcinolone (KENALOG) 0.1 % cream APPLY TO EXTREMITIES TWO TIMES A DAY FOR 14 DAYS OR LESS THEN NEEDED 025 Active Nexlizet 180-10 MG tabletIndications :Mixed hyperlipidemia TAKE ONE TABLET BY MOUTH EVERY DAY 90 tablet 3 025 Active Nexlizet 180-10 MG tabletIndications :Mixed hyperlipidemia TAKE ONE TABLET BY MOUTH EVERY DAY 90 tablet 3 03/17/2 024 2024 Discontinued Active Problems Problem Noted Date Diagnosed Date [...] Sign Reading Time Taken Comments Blood Pressure 152/90 10/09/2024 9:49 AM EDT Pulse 56 10/09/2024 9:49 AM EDT Temperature - - Respiratory Rate - - Oxygen Saturation 99% 10/09/2024 9:49 AM EDT Inhaled Oxygen Concentration - - Weight 78.9 kg (174 lb) 10/09/2024 9:49 AM EDT Height 177.2 cm (5' 9.75 ) 10/09/2024 9:49 AM ED T Body Mass Index 25.15 10/09/2024 9:49 AM EDT Plan of Treatment Health Maintenance Due Date Last Done Comments Hepatitis C Virus Screening 1970 HIV Screening 1983 DTaP/Tdap/Td Vaccines (1 - Tdap) 1989 Hepatitis B Vaccines (1 of 3 - 19+ 3-dose series) 05/05 Colonoscopy 2015 Pneumococcal Vaccines 50+ (1 of 1 - PCV) 2020 RSV Vaccine 50 years and old er and Patients (1 - Risk 50-74 years 1-dose series) 2020 Zoster (Shingles) Vaccine (1 of 2) 2020 Influenza Vaccine 01/02/2025 COVID-19 Vaccine (1 - 20209-26) 02/02/2025 Procedures Procedure Name Priority Date/Time Associated Diagnosis Comments MICROALBUMIN, CREATININE, URINE, RANDOM Routine 03/31/2025 6:48 AM EDT Mixed hyperlipidemia Blood glucose abnormal OMEGACHECK Routine 03/31/2025 6:48 AM EDT Mixed hyperlipidemia Blood glucose abnormal CARDIO IQ VITAMIN D, 25-HYDROXY Routine 03/31/2025 6:48 AM EDT Mixed hyperlipidemia Blood glucose abnormal Vitamin D deficiency CARDIO (IQ) ADVANCED LIPID PANEL AND INFLAMMATION PANEL Routine 03/31/2025 6:48 AM EDT Mixed hyperlipidemia Blood glucose abnormal from Last 3 Months Results * (ABNORMAL) Omegacheck (Raywick-3, Raywick-6) (03/31/2025 6:48 AM EDT) EPA+DPA+DHA 6.6 >5.4 % by wt [facility]. Comment: This test was developed and its analytical performance characteristics have been determined by [facility]. It has not been cleared or approved [...] relative risk categories were established for OmegaCheck: A cut-off of >=5.5% by wt defines a [...] within 2 to 3 weeks. (Reference: 1-Jd salinas al. [facility]. 2002; 346: 3570-6615). EPA/Arachidonic Acid Ratio 12.4 3.7 - 40.7 [employer] Raywick 6/Raywick 3 Ratio 5.7 3.7 - 14.4 [employer] Raywick-3 Total 6.6 % by wt [employer] EPA 1.3 0.2 - 2.3 % by wt [employer] DPA 1.8 0.8 - 1.8 % by wt [employer] DHA 3.5 1.4 - 5.1 % by wt [employer] Raywick-6 Total 37.6 % by wt [employer] Comment: CrowdFanatic measures a number of omega-6 fatty acids with AA and LA being the two most abundant forms reported. Arachidonic Acid 16.2(H) 8.6 - 15.6 % by wt [employer] Linoleic Acid 19.0 18.6 - 29.5 % by wt [employer] Blood Blood specimen / Unknown 03/31/2025 6:48 AM EDT 03/31/2025 6:51 AM EDT Narrative [facility] - 04/05/2025 3:12 PM EST REQ 2 FASTING:YES FASTING: YES us Matt Whitmore MD LAB BLOOD ORDERABLES Final Resul t [facility] [employer] [address], [address] [place] [address] * (ABNORMAL) Cardio IQ?? Advanced Lipid Panel and Inflammation Panel (03/31/2025 6:48 AM EDT) [facility] Cholesterol, Total 101 <200 mg/dL [employer] Cholesterol, HDL 44 >39 mg/dL [facility] Triglycerides 60 <150 mg/dL [facility] LDL Cholesterol 43 <100 mg/dL (calc) [facility] Comment: Desirable range <100 mg/dL for primary prevention; <70 mg/dL for patients with CHD or diabetic patients with >= 2 CHD risk factors. LDL-C is now calculated using the Lyndon-Christianson calculation, which is a validated novel method providing better accuracy than the Friedewald equation in the estimation of LDL-C. Lyndon SS et al. BUFFY. 2013;310(19): 6149-5505 (http://education.Apaja.Brightbox Charge/faq/XBG397) LDL-C is now calculated using the Lyndon-Christianson calculation, which is a validated novel method providing better accuracy than the Friedewald equation in the estimation of LDL-C. Lyndon SS et al. BUFFY. 2013;310(19): 8926-5320 (http://education.Apaja.Brightbox Charge/faq/YYV525) Cholesterol/HDL Ratio 2.3 <5.0 calc [facility] Non HDL Chol. (LDL+VLDL) 57 <130 mg/dL (calc) [facility] [employer] Comment: For patients with diabetes plus 1 major ASCVD risk factor, treating to a non-HDL-C goal of <100 mg/dL (LDL-C of <70 mg/dL) is considered a therapeutic option. For patients with diabetes plus 1 major ASCVD risk factor, treating to a non-HDL-C goal of <100 mg/dL (LDL-C of <70 mg/dL) is considered a therapeutic option. LDL Particle Number 1,078 <1,138 nmol/L [facility] Comment: Relative Risk: Optimal <1138; Moderate 4559-8588; High >1409. Male and Female Reference Range: 1016 to 2185 nmol/L. LDL Small 228(H) <142 nmol/L [facility]. Comment: Relative Risk: Optimal <142; Moderate 142-219; High >219. Male Reference Range: 123 to 441 nmol/L; Female Reference Range: 115 to 386 nmol/L. LDL Medium 192 <215 nmol/L [facility]. Comment: Relative Risk: Optimal <215; Moderate 215-301; High >301. Male Reference Range: 167 to 485 nmol/L; Female Reference Range: 121 to 397 nmol/L. HDL Large 5,765(L) >6,729 nmol/L [facility]. Comment: Relative Risk: Optimal >6729; Moderate 3725-1529; High <5353. Male Reference Range: 4334 to 98986 nmol/L; Female Reference Range: 5038 to 59632 nmol/L. LDL Pattern B(A) A Pattern [facility]. Comment: Relative Risk: Optimal Pattern A; High Pattern B. Reference Range: Pattern A. LDL Peak Size 214.5(L) >222.9 [employer] [facility]. Comment: This test was developed and its analytical performance characteristics have been determined by [facility] [place]. It has not been cleared or approved [...] ATVB.2009;29:1975. For additional information, please refer to http://education.Apaja.Brightbox Charge/faq/OQW142 (This link is being provided for informational/educational purposes only.) Apolipoprotein B 51 <90 mg/dL [facility] Comment: Reference Range <90 Risk Category: Optimal <90 Moderate 90-129 High > or = 130 A desirable treatment target may be <80 mg/dL or lower depending on the risk category of the patient including patients on lipid lowering therapies, patients with ASCVD, diabetes with >1 risk factors, Stage 3 or greater CKD with albuminuria, or heterozygous familial hypercholesterolemia. ApoB relative risk category cut points are based on AACE/LOREN and ACC/AHA recommendations (Nikkie SM, et al. 2019. doi:10.1016/j.jacc.2018.11.002; Zeke Y, et al. 2020. doi:10.5720/IE-5476-7872). Lipoprotein (a) 11 <75 nmol/L [facility] [employer] Comment: Risk: Optimal <75 nmol/L; Moderate 75-125 nmol/L; High >125 nmol/L. Cardiovascular event risk category cut points (optimal, moderate, high) are based on Federico Lucas [facility] 2017;69:692-711. C-Reactive Protein (High Sens) <0.2 <1.0 mg/L [facility] Comment: Reference Range: Optimal <1.0 mg/L, according [...] inflammation. The AHA/CDC recommendations are based on Casiano TA, To GA, Tanner RW, et al. Markers of inflammation and cardiovascular disease: application to clinical and public health practice: A statement for healthcare professionals from the Centers for Disease Control and Prevention and the [place] [employer]. Circulation 2003; 107(3): 499-511. For ages >17 Years: hs-CRP mg/L Risk According to AHA/CDC Guidelines <1.0 Lower relative cardiovascular risk. 1.0-3.0 Average relative cardiovascular risk. 3.1-10.0 Higher relative cardiovascular risk. Consider retesting in 1 to 2 weeks to exclude a benign transient elevation in the baseline CRP value secondary to infection or inflammation. >10.0 Persistent elevation, upon retesting, may be associated with infection and inflammation. Casiano TA, To GA, Tanner RW, et al. Markers of inflammation and cardiovascular disease: application to clinical and public health practice: A statement for healthcare professionals from the Centers for Disease Control and Prevention and the [place] Heart [employer]. Circulation 2003; 107(3): 499-511. LP PLA2 Activity 76 <124 nmol/min/mL [facility] [employer]. Comment: Relative Risk: Optimal <=123 nmol/min/mL; High >123 nmol/min/mL. This test was developed and its analytical performance characteristics have been determined by [facility]. It has not been cleared or approved by the FDA. This assay has been validated pursuant to the CLIA regulations and is used for clinical purposes. See Note 1 Note 1 This test was developed and its analytical performance characteristics have been determined by [facility]. It has not been cleared or approved by the FDA. This assay has been validated pursuant to the CLIA regulations and is used for clinical purposes. Blood Blood specimen / Unknown 03/31/2025 6:48 AM EDT 03/31/2025 6:51 AM EDT Narrative [facility] - 04/05/2025 3:12 PM EST REQ 1 OF 2 FASTING:YES FASTING: YES us Matt Whitmore MD LAB BLOOD ORDERABLES Final Resul t [facility] [employer] [address] [place] [address] * Cardio IQ?? Vitamin D, 25-Hydroxy (03/31/2025 6:48 AM EDT) Vitamin D, 25-Hydroxy, Total 45 30 - 100 ng/mL [facility] Comment: Vitamin D, 25-Hydroxy reports concentrations of two common forms, 25-OHD2 and 25-OHD3. 25-OHD3 indicates both endogenous production and supplementation. 25-OHD2 is an indicator of exogenous sources such as diet or supplementation. Therapy is based on measurement of Total 25-OHD, with levels <20 ng/mL indicative of Vitamin D deficiency, while levels between 20 ng/mL and 30 ng/mL suggest insufficiency. Optimal levels are > or = 30 ng/mL. For additional information, please refer to http://education.Genophen/faq/QIZ011 (This link is being provided for informational/ educational purposes only.) Vitamin D, 25-Hydroxy, D3 45 ng/mL [facility] Comment: This test was developed and its analytical performance characteristics have been determined by [facility] [place]. It has not been cleared or approved by the U.S. Food and Drug Administration. This assay has been validated pursuant to the CLIA regulations and is used for clinical purposes. Vitmain D, 25-Hydroxy, D2 <4 ng/mL [facility] [employer] [facility] Comment: This test was developed and its analytical performance characteristics have been determined by [facility] [place]. It has not been cleared or approved by the U.S. Food and Drug Administration. This assay has been validated pursuant to the CLIA regulations and is used for clinical purposes. Blood Blood specimen / Unknown 03/31/2025 6:48 AM EDT 03/31/2025 6:51 AM EDT [facility] - 04/05/2025 3:12 PM EST REQ 1 OF 2 FASTING:YES FASTING: YES us Matt Whitmore MD LAB BLOOD ORDERABLES Final Resul t [facility] [address] [place] [address] * Microalbumin, Creatinine, Urine, Random (03/31/2025 6:48 AM EDT) Creatinine, Urine, Random 98 20 - 320 mg/dL [facility] [employer] Microalbumin, Urine, Random 0.2 See Note: mg/dL [facility] [employer] Comment: Reference Range: Reference Range Not established Microalbumin/Creat inine Ratio 2 <30 mg/g creat [facility] [employer] Comment: The ADA defines abnormalities in albumin excretion as follows: Albuminuria Category Result (mg/g creatinine) Normal to Mildly increased <30 Moderately increased 30-299 Severely increased > OR = 300 The ADA recommends that at least two of three specimens collected within a 3-6 month period be abnormal before considering a patient to be within a diagnostic category. Urine Urine specimen / Unknown 03/31/2025 6:48 AM EDT 03/31/2025 6:51 AM EDT Narrative [facility] - 04/05/2025 3:12 PM EST REQ 1 OF 2 FASTING:YES FASTING: YES Matt Whitmore MD URINE ORDERABLES Final Result [employer] [address] [place] [phone] from Last 3 Months [facility] Care Teams Beauty Operator Apprentice Relationship Specialty Start Date End Date Seferino Thapa MD [place] [address] PCP - General 12/28/20 Matt Whitmore MD [address] [place] [address] Primary Golf Club Head Inspector And Adjuster Cardiovascular Disease 10/04/22 Tanner Cantu MD [address] [facility] [address] [place] [address] Urology 10/04/22
--- OUTSIDE RECORDS SUMMARY | 2025-04-23 10:14 | XMS_ITS | Encounter Summary ---
Author Organization [facility] Address [address] [place] [address] Care Team Providers Care Agriculture Inspector Name Role Phone Seferino Thapa MD Primary Care Provider Unavail able Encounter Details Date Type Department Care Team Description 12/12/2019 Treatment Jonathan Roper MD [address] [address] Karen Roper, RN Social History Tobacco Use [...] on filedocumented in this encounter Care Teams Agriculture Inspector Relationship Specialty Start Date End Date Seferino Thapa MD PCP - General Internal Medicine 05/04/17 documented as of this encounter
== END 2025-04-23 09:35 | disposition home or self-care (01) ==
LOC: HO.HUSH 08:46
PROVIDERS: PCP Internal Medicine; Visit Provider Urology
DX: E10.69 Type 1 diabetes mellitus with other specified complication (principal); N52.1 Erectile dysfunction due to diseases classified elsewhere; N40.0 Benign prostatic hyperplasia without lower urinary tract symptoms
CPT/HCPCS: 99213

== ENCOUNTER → 2025-04-23 08:46 | Outpatient (BNVA) | payer BC, SELFPAY | PROVIDERS: PCP Internal Medicine; Visit Provider Urology | DX: E10.69 Type 1 diabetes mellitus with other specified complication (principal); N52.9 Male erectile dysfunction, unspecified; E29.1 Testicular hypofunction; N40.0 Benign prostatic hyperplasia without lower urinary tract symptoms | CPT/HCPCS: 51798 ==